=== PATIENT | female | born 1960 | race Caucasian/White ===

== ENCOUNTER 2016-04-21 14:35 | Emergency (ER) | payer OTHER ==
[2016-04-21] MEDS ORDERED: NS 0.9% 1000 ML* 1,000 ML IV ONE (17:24)
[2016-04-21 17:43] LABS: Hematocrit 42 % (35-47); Hemoglobin 13.6 g/dl (12.0-16.0); Mean Corpuscular HGB Conc 33 g/dl (31-36); Mean Corpuscular Hemoglobin 30 pg (27-31); Mean Corpuscular Volume 91 fL (80-97); Mean Platelet Volume 8 um3 (7.4-10.4); Red Blood Count 4.56 10^6/ul (4.0-5.4); Red Cell Distribution Width 14 % (10.5-15); White Blood Count 5.8 10^3/ul (3.5-10.8)
[2016-04-21 17:58] LABS: Albumin 3.9 g/dL (3.2-5.2); BUN/Creatinine Ratio 11.3 (8-20); Calcium 9.2 mg/dL (8.6-10.3); EGFR African American 109.5 (>60); EGFR Non-African American 85.2 (>60); Globulin 3.2 g/dL (2-4); Magnesium 1.9 mg/dL (1.9-2.7); Potassium 3.8 mmol/L (3.5-5.0); Total Bilirubin 0.3 mg/dL (0.2-1.0); Total Protein 7.1 g/dL (6.4-8.9)
--- NOTE | 2016-04-21 18:14 | RAD ---
HISTORY: Rapid A. fib COMPARISONS: August 21, 2015 VIEWS:1: Single frontal portable view of the chest at 5:44 PM FINDINGS: LINES AND TUBES: None. CARDIOMEDIASTINAL SILHOUETTE: The cardiomediastinal silhouette is normal for portable technique. PLEURA: The costophrenic angles are sharp. No pleural abnormalities are noted. LUNG PARENCHYMA: There is hyperinflation. ABDOMEN: The upper abdomen is clear. There is no subphrenic gas. BONES AND SOFT TISSUES: No bone or soft tissue abnormalities are noted. IMPRESSION: HYPERINFLATION. NO ACTIVE CARDIOPULMONARY DISEASE.
[2016-04-21 18:29] LABS: TSH (Thyroid Stimulating Horm) 2.11 mcIU/mL (0.34-5.60)
--- NOTE | 2016-04-21 18:43 | ED ---
Margaux Pinon Janilya, scribed for Javed Patterson MD on 04/21/16 at 1706 . Complex/Multi-Sys Presentation - HPI Summary HPI Summary: A 55 y/o female came in to [facility] presenting w/ a gradual onset of constant fatigue and dizziness for the past couple days. She states feeling "woozy" and unsteady which feels like hyperventilating. She also reports weakness in legs and palpitations. When she stands up, her condition is worse. In addition, pt normally has very low blood pressure, but this morning her BP was unusually high 138/94. Pt has been eating and drinking normally. Pt denies CP, SOB, OLIVERA. PMHx afib; flu couple weeks ago. - History Of Current Complaint Chief Complaint: EDGeneral Hx Obtained From: Patient Onset/Duration: Gradual Onset, Lasting Days, Still Present Timing: Constant Severity Currently: Moderate Severity Initially: Moderate Aggravating Factor(s): standing up Alleviating Factor(s): nothing Associated Signs And Symptoms: Positive: Dizziness, Palpitations. Negative: Headache, SOB, Chest Pain Related History: Recent Illness - flu couple weeks ago - Allergies/Home Medications Allergies/Adverse Reactions: Allergies Allergy/AdvReac Type Severity Reaction Status Date / Time Latex Allergy Rash Verified 02/29/16 13:39 PMH/Surg Hx/FS Hx/Imm Hx Previously Healthy: Yes Cardiovascular History: Reports: Hx Atrial Fibrillation Respiratory History: Reports: Hx Asthma, Other Respiratory Problems/Disorders - ILL FOR 1 1/2 WEEKS COUGH,SOB,WHEEZING PER PT Musculoskeletal History: Denies: Hx Scoliosis Neurological History: Denies: Hx Headaches, Other Neuro Impairments/Disorders - Cancer History Cancer Type, Location and Year: BASAL CELL SKIN CANCER ON BACK NO TREATMENT Infectious Disease History: No Infectious Disease History: Denies: Traveled Outside the [place] in Last 30 Days - Family History Known Family History: Positive: Cardiac Disease, Hypertension, Diabetes - Social History Alcohol Use: Weekly Alcohol Amount: 2-3 Hx Substance Use: No Substance Use Type: Reports: None Hx Tobacco Use: No Smoking Status (MU): Former Smoker Type: Cigarettes Review of Systems Positive: Fatigue Positive: Palpitations, Other - abnormally to pt high blood pressure. Negative : Chest Pain Negative: Shortness Of Breath Neurological: Other - dizziness Positive: Weakness - in legs. Negative: Headache All Other Systems Reviewed And Are Negative: Yes Physical Exam Triage Information Reviewed: Yes Vital Signs On Initial Exam: Initial Vitals Temp Pulse Resp BP Pulse Ox 98.1 F 72 19 116/91 100 04/21/16 14:49 04/21/16 14:49 04/21/16 14:49 04/21/16 14:49 04/21/16 14:49 Vital Signs Reviewed: Yes Appearance: Positive: Well-Appearing, No Pain Distress Skin: Positive: Warm, Skin Color Reflects Adequate Perfusion, Dry Head/Face: Positive: Normal Head/Face Inspection Eyes: Positive: EOMI, SHAHRZAD ENT: Positive: Normal ENT inspection Neck: Positive: Supple, Nontender Cardiovascular: Positive: RRR Abdomen Description: Positive: Nontender, Soft Bowel Sounds: Positive: Present Musculoskeletal: Positive: Normal, Strength/ROM Intact Neurological: Positive: Normal, Sensory/Motor Intact, Alert, Oriented to Person Place, Time Psychiatric: Positive: Anxious - Brady Coma Scale Coma Scale Total: 15 Diagnostics - Vital Signs Vital Signs Temp Pulse Resp BP Pulse Ox 04/21/16 15:51 98.4 F 77 16 121/88 99 04/21/16 14:49 98.1 F 72 19 116/91 100 - Laboratory Lab Results: Lab Results 04/21/16 04/21/16 04/21/16 Range/Units 17:32 17:32 17:32 WBC 5.8 (3.5-10.8) 10^3/ul RBC 4.56 (4.0-5.4) 10^6/ul Hgb 13.6 (12.0-16.0) g/dl Hct 42 (35-47) % MCV 91 (80-97) fL MCH 30 (27-31) pg MCHC 33 (31-36) g/dl RDW 14 (10.5-15) % Plt Count 231 (150-450) 10^3/ul MPV 8 (7.4-10.4) um3 Neut % (Auto) 50.2 (38-83) % Lymph % (Auto) 32.7 (25-47) % [place] % (Auto) 11.5 H (1-9) % Eos % (Auto) 4.8 (0-6) % Baso % (Auto) 0.8 (0-2) % Absolute Neuts (auto) 2.9 (1.5-7.7) 10^3/ul Absolute Lymphs (auto) 1.9 (1.0-4.8) 10^3/ul Absolute Monos (auto) 0.7 (0-0.8) 10^3/ul Absolute Eos (auto) 0.3 (0-0.6) 10^3/ul Absolute Basos (auto) 0 (0-0.2) 10^3/ul Absolute Nucleated RBC 0.02 10^3/ul Nucleated RBC % 0.3 INR (Anticoag Therapy) 0.95 (0.89-1.11) APTT 33.2 (26.0-36.3) seconds D-Dimer, Quantitative < 200 (Less Than 230) ng/mL Sodium 136 (133-145) mmol/L Potassium 3.8 (3.5-5.0) mmol/L Chloride 100 L (101-111) mmol/L Carbon Dioxide 30 (22-32) mmol/L Anion Gap 6 (2-11) mmol/L BUN 8 (6-24) mg/dL Creatinine 0.71 (0.51-0.95) mg/dL Est GFR ( Amer) 109.5 (>60) Est GFR (Non-Af Amer) 85.2 (>60) BUN/Creatinine Ratio 11.3 (8-20) Glucose 87 (70-100) mg/dL Calcium 9.2 (8.6-10.3) mg/dL Magnesium 1.9 (1.9-2.7) mg/dL Total Bilirubin 0.30 (0.2-1.0) mg/dL AST 21 (13-39) U/L ALT 15 (7-52) U/L Alkaline Phosphatase 64 (34-104) U/L Troponin I 0.00 (<0.04) ng/mL Total Protein 7.1 (6.4-8.9) g/dL Albumin 3.9 (3.2-5.2) g/dL Globulin 3.2 (2-4) g/dL Albumin/Globulin Ratio 1.2 (1-3) TSH 2.11 (0.34-5.60) mcIU/mL Result Diagrams: 04/21/16 17:32 04/21/16 17:32 Lab Statement: Any lab studies that have been ordered have been reviewed, and results considered in the medical decision making process. - Radiology CXR Xray Interpretation: No Acute Changes - IMPRESSION: HYPERINFLATION. NO ACTIVE CARDIOPULMONARY DISEASE. Radiology Interpretation Completed By: Radiologist - EKG 1455 Cardiac Rate: NL EKG Rhythm: Sinus Rhythm Ectopy: None EKG Interpretation: Borderline T wave abnormalities Complex Multi-Symp Course/Dx Assessment/Plan: WELL IN ED. DISCUSSED RESULTS WITH PATIENT. DISCHARGE HOME STABLE. - Diagnoses Provider Diagnoses: Lightheadedness Discharge - Discharge Plan Condition: Stable Disposition: HOME Patient Education Materials: Lightheadedness (ED) Referrals: Marquis Nash MD [Primary Care Provider] - Additional Instructions: FOLLOW UP WITH YOUR DOCTOR. RETURN TO THE EMERGENCY DEPARTMENT FOR ANY WORSENING OF YOUR CONDITION; CHEST PAIN, SHORTNESS OF BREATH, YOU FEEL ILL, YOU FEEL LIKE YOU ARE GOING TO PASS OUT OR QUESTIONS OR CONCERNS. The documentation as recorded by the Margaux pablo Janilya accurately reflects the service I personally performed and the decisions made by me, Javed Patterson MD.
[2016-04-21 19:05] VITALS: BP 114/65
== END 2016-04-21 19:04 | disposition home or self-care (01) ==
LOC: ED 14:35
DX: R42 Dizziness and giddiness (principal); Z87.891 Personal history of nicotine dependence; Z85.828 Personal history of other malignant neoplasm of skin; I48.91 Unspecified atrial fibrillation; J45.909 Unspecified asthma, uncomplicated
CPT/HCPCS: 36415; 71010; 80053; 83735; 84443; 84484; 85025; 85379; 85610; 85730; 93005; 96360; 99282

== ENCOUNTER 2018-04-25 08:22 | Inpatient (IN) | payer OTHER ==
[2018-04-25] MEDS ORDERED: NS 0.9% 1000 ML** 1,000 ML IV ONE (08:41)
[2018-04-25] MEDS ORDERED: Diltiazem IV* 5 MG/ML 5 ML VIAL (for loading dose/IV Push) (25 MG) ONE (08:41)
[2018-04-25] MEDS ORDERED: Diltiazem IV* 5 MG/ML 5 ML VIAL (for loading dose/IV Push) (25 MG) IV PUSH ONE (08:41)
--- NOTE | 2018-04-25 08:49 | ED ---
Palpitations / Dysrhythmia - HPI Summary HPI Summary: This patient is a 57 year old F presenting to [facility] with a chief complaint of dull mid-sternal chest pain with sudden palpitations beginning this morning with mild SOB. She describes the palpitations as a-fib and has a history of A- fib. SOB is currently improved. CP is 2/10 upon triage. Patient reports dizziness and recent cold. Patient denies current headache. Patient states she is not taking Coumadin as prescribed and she is not on any anticoagulants because she does not like how they make her feel. She is not sure what anticoagulants have been tried. She saw Dr. Ford last week and is supposed to have a cardiac ECHO ordered by Dr. Ford in 6 days. She reports occasionally taking gabapentin for restless legs, but no other medications. - History of Current Complaint Chief Complaint: EDChestPainROMI Hx Obtained From: Patient Onset/Duration: Sudden Onset, Lasting Hours Timing: Constant Severity Initially: Severe Severity Currently: Severe Character: Fast, Irregular Aggravating: Caffeine - was making a pot of coffee at onset, Medication - cold medication? Alleviating: Nothing Associated Signs & Symptoms: Dizzy, Chest Pain, Shortness of Breath Related History: Similar Episode/Dx as - A-fib - Allergy/Home Medications Allergies/Adverse Reactions: Allergies Allergy/AdvReac Type Severity Reaction Status Date / Time latex Allergy Mild Rash Verified 04/25/18 08:44 Home Medications: Home Medications Gabapentin CAP(*) [Neurontin 100 mg CAP(*)] 100 mg PO SEE INSTRUCTIONS PRN 04/25 [History Confirmed 04/25/18] PMH/Surg Hx/FS Hx/Imm Hx Previously Healthy: No Cardiovascular History: Reports: Hx Atrial Fibrillation Respiratory History: Reports: Hx Asthma, Other Respiratory Problems/Disorders - ILL FOR 1 1/2 WEEKS COUGH,SOB,WHEEZING PER PT Musculoskeletal History: Denies: Hx Scoliosis Neurological History: Denies: Hx Headaches, Other Neuro Impairments/Disorders - Cancer History Cancer Type, Location and Year: BASAL CELL SKIN CANCER ON BACK NO TREATMENT - Surgical History Surgery Procedure, Year, and Place: none Infectious Disease History: No Infectious Disease History: Denies: Traveled Outside the [place] in Last 30 Days - Family History Known Family History: Positive: Cardiac Disease - mother at age 80, Hypertension , Diabetes - Social History Alcohol Use: Weekly Alcohol Amount: 2-3 Hx Substance Use: No Substance Use Type: Reports: None Hx Tobacco Use: No Smoking Status (MU): Former Smoker Type: Cigarettes Review of Systems Positive: Other - dizzy Positive: Palpitations, Chest Pain Positive: Shortness Of Breath Gastrointestinal: Negative Positive: no symptoms reported Musculoskeletal: Negative Skin: Negative Negative: Headache Psychological: Normal All Other Systems Reviewed And Are Negative: Yes Physical Exam - Summary Physical Exam Summary: Appearance: Ill-appearing, no pain distress, well-nourished Skin: Warm, color reflects adequate perfusion, dry Head: Normal Head/Face inspection, atraumatic Eyes: Conjunctiva clear ENT: Normal inspection Neck: Supple, no nodes, no JVD Respiratory: Lungs clear, normal breath sounds, no respiratory distress Cardio: tachycardic, irregular rhythm, No murmur, pulses normal, brisk capillary refill Abdomen: Soft, nontender Bowel sounds: Present Musculoskeletal: Strength Intact/ROM intact, no calf tenderness, no edema. Psychological: Normal Neuro: Alert, muscle tone normal, no focal deficit Triage Information Reviewed: Yes Vital Signs On Initial Exam: Initial Vitals Temp Pulse Resp BP Pulse Ox 97.3 F 133 20 129/98 100 04/25/18 08:23 04/25/18 08:23 04/25/18 08:23 04/25/18 08:23 04/25/18 08:23 Vital Signs Reviewed: Yes Diagnostics - Vital Signs Vital Signs Temp Pulse Resp BP Pulse Ox 04/25/18 08:23 97.3 F 133 20 129/98 100 - Laboratory Result Diagrams: 04/26/18 05:15 04/26/18 05:15 Lab Statement: Any lab studies that have been ordered have been reviewed, and results considered in the medical decision making process. - Radiology CXR Radiology Interpretation Completed By: Radiologist Summary of Radiographic Findings: NO ACTIVE CARDIOPULMONARY DISEASE. - EKG 0831 Cardiac Rate: Tachycardia - 176 BPM EKG Rhythm: Atrial Fibrillation ST Segment: Non-Specific Ectopy: None EKG Comparison: Other - c/w 04/21/16 pt is now in rapid afib Summary of EKG Findings: nml IV CT, nml QTc, and nml axis. No acute changes. 1118 Cardiac Rate: Tachycardia - 131 BPM EKG Rhythm: Atrial Fibrillation ST Segment: Non-Specific Ectopy: PVCs EKG Comparison: Other - rated decreased from earlier today Summary of EKG Findings: nml IV CT, nml QTc, and nml axis. No acute changes. Re-Evaluation - Re-Evaluation First Re-Evaluation Time: 10:20 Change: Improved - HR at 154 BPM. BP 93/66. Patient denies CP. Cardizem drip increased from 5mg to 7.5mg. Second Eval Re-Evaluation Time: 11:00 Change: Unchanged Comment: HR remains elevated. Fluids infusing. Cardizem drip increased to 10mg/ hr Course/Dx - Course Course Of Treatment: 57 year old F presenting to [facility] with a chief complaint of dull mid-sternal chest pain with sudden palpitations beginning this morning with mild SOB. She describes the palpitations as a-fib and has a history of A -fib. SOB is currently improved. Patient reports dizziness and recent cold. Patient denies current headache. Patient states she is not taking Coumadin as prescribed. Pulse was 197 during examination with a BP of 129/96. After first 10mg dose of cardizem pulse improved to 120-150BPM with a BP of 98/60. Patient was placed on cardizem drip at 5mg, which was later increased to 7.5mg. Patient additinoally given 1,000mls IVF. Drip was ultimately increased to 10mg/hr and second liter of NS IV infused. See Janie's nurses notes which detail heart rates , fluids and Cardizem drip rates. Intial EKG reveals A-fib at 176 BPM, nml IV CT, nml QTc, and nml axis. No acute changes. Second EKG reveals a-fib at 131BPM , nml IV CT, nml QTc, and nml axis. No acute changes. An EKG in 2017 showed pt in sinus rhytm. CXR reveals, " NO ACTIVE CARDIOPULMONARY DISEASE", as per radiologist. Bloodwork reveals BUN/Creatinine ratio of 24.4 and B-natriuretic 191. Toxicology is negative. Flu swabs are negative. Dr. Lennon accepts for admission at 11:50. Results discussed with patient. Patient agress to admission. - Diagnoses Differential Diagnosis/HQI/PQRI: Positive: Cardiomyopathy, Congestive Heart Failure, Coronary Artery Disease, Medication Induced, Pulmonary Embolism Provider Diagnoses: Atrial fibrillation with RVR - Physician Notifications Discussed Care Of Patient With: Lisa Lennon - hospitalist Time Discussed With Above Provider: 11:50 Instructed by Provider To: Admit As Inpatient - Critical Care Time Critical Care Time: 30-74 min - 30 mins Discharge - Sign-Out/Discharge Documenting (check all that apply): Patient Departure - admit All imaging exams completed and their final reports reviewed: Yes - Discharge Plan Condition: Stable Disposition: ADMITTED TO [facility] - Billing Disposition and Condition Condition: STABLE Disposition: Admitted to [facility] - Attestation Statements Document Initiated by Scribe: Yes Documenting Scribe: Angelica Smith Provider For Whom Narayanibe is Documenting (Include Credential): Mae Winkler MD Scribe Attestation: Angelica Pinon , scribed for Mae Winkler MD on 04/27/18 at 0010. Scribe Documentation Reviewed: Yes Provider Attestation: The documentation as recorded by the Angelica pablo accurately reflects the service I personally performed and the decisions made by Mae denise MD Status of Scribe Document: Viewed
[2018-04-25 08:51] LABS: ABS Basophils 0.1 10^3/ul (0-0.2); ABS Eosinophils 0.4 10^3/ul (0-0.6); ABS Monocytes 0.5 10^3/ul (0-0.8); ABS Nucleated RBC 0 10^3/ul; Eosinophil % 5.3 %; Hematocrit 41 % (35-47); Hemoglobin 13.7 g/dl (12.0-16.0); Lymphocyte % 25.1 %; Mean Corpuscular HGB Conc 33 g/dl (31-36); Mean Corpuscular Hemoglobin 31 pg (27-31); Mean Corpuscular Volume 92 fL (80-97); Mean Platelet Volume 8.4 fL (7.4-10.4); Nucleated Red Blood Cells % 0.1; Platelet Count 327 10^3/ul (150-450); Red Blood Count 4.48 10^6/ul (4.00-5.40); Red Cell Distribution Width 14 % (10.5-15); White Blood Count 7.9 10^3/ul (3.5-10.8)
[2018-04-25] MEDS: Diltiazem IV VIAL* 125 MG in NS 0.9% 100 ML* 100 ML IVPB ONE ×3 (09:03→10:25)
[2018-04-25 09:10] LABS: Albumin 3.9 g/dL (3.2-5.2); Albumin/Globulin Ratio 1.2 (1-3); BUN/Creatinine Ratio 24.4 (8-20); Calcium 9.7 mg/dL (8.6-10.3); EGFR African American 91.8 (>60); EGFR Non-African American 75.9 (>60); Globulin 3.3 g/dL (2-4); Magnesium 1.9 mg/dL (1.9-2.7); Potassium 4.1 mmol/L (3.5-5.0); Total Bilirubin 0.3 mg/dL (0.2-1.0); Total Protein 7.2 g/dL (6.4-8.9)
[2018-04-25 09:14] LABS: CKMB ng/mL 1.1 ng/mL (0.6-6.3)
--- OUTSIDE RECORDS SUMMARY | 2018-04-25 09:15 | XMS REPORT | Continuity of Care Document ---
:1960 External Reference #:[id number] Author Name WeslyFanny Care Team Providers Name Role Phone Jaleesa León M.D. Primary Care Physician Unavailable Payers Date Identification Numbers Payment Provider Subscriber Expires: 2015 Policy Number: [id number] Medicaid Jayleen Gonsalves [employer] Name: 1 1 [address] PayID: [id number] [place] [address] Effective: 2018 Policy Number: [id number] [place] Jayleen Gonsalves Group Name: [id number] PayID: [id number] [place] [address] Expires: 2018 Policy Number: [id number] Medicaid Jayleen Gonsalves Group Name: [address] PayID: [id number] [place] [address] Advance Directives Description No Information Available Problems Date Description Provider Status Onset: 05/06/2008 Female climacteric state Adina Smith M.D.,FACP Onset: 05/06/2008 Insomnia Adina Smith M.D.,FACP Onset: 11/29/2009 Restless legs Adina Smith M.D.,FACP Onset: 10/07/2012 Microscopic hematuria Adina Smith M.D.,FACP Onset: 03/30/2013 Extrinsic asthma without status Adina Smith asthmaticus Jovan,FACP Onset: 08/07/2015 Paroxysmal atrial fibrillation Lyn Ford M.D. Active Onset: 11/09/2015 Allergic contact dermatitis of Lyn Ford M.D. Active eyelid Onset: 11/09/2015 Allergic contact dermatitis due Lyn Ford M.D. Active to adhesive Onset: 11/20/2015 Mixed hyperlipidemia Adina Smith M.D.,FACP Note: high HDL Onset: 02/16/2016 Localized superficial swelling of skin Rashad De León MD Inactive Inactive: 08/23/2016 Onset: 07/14/2015 Rapid atrial fibrillation Marquis Nash M.D.,FACP Resolved Resolved: 09/27/2015 Family History Date Family Member(s) Observation Comments General Diabetes General Heart Disease General Cancer Father due to Alcohol Related () Mother Diabetes, Non Insulin Dependent : (age 74 Years) Mother due to Heart Disease CHF? 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 Exercise Type/Frequency Exercises rarely Allergies, Adverse Reactions, Alerts Date Description Reaction Status Severity Comments 10/02/2012 Environmental Allergies Active 10/25/2015 Hydrocodone Active 02/16/2016 Latex Active 03/28/2008 NKDA Inactive Medications Medication Date Status Form Strength Qnty SIG Indications Ordering Provider Tramadol 02/28/ Active Tablets 37.5-325m 45tab 1 tab by Jaleesa /A 2015 g s mouth León, cetaminophen every 4-6 MD hours as needed pain Ibuprofen 10/24/ Active Tablets 600mg 90tab three B02.8 Maqruis 2016 s times a Lelia Nash, kasandra as Jovan,FACP needed Gabapentin 10/24/ Active Capsules 100mg 120ca 2 tabs B02.8 2015 ps twice a León, day as MD needed Ventolin HFA 03/30/ Active Aerosol 108(90Bas 18gm 2 puffs by 2013 e) mouth four León, mcg/Act times a MD day as needed Magnesium Oxide 09/06/ Active Tablets 400mg 90tab 1 by mouth G47.62 2009 s every day MD Romelia Loratadine / Active Tablets 10mg 30tab 1 by mouth J45.998 s every day Romelia, as needed Tizanidine HCL 08/06/ Hx Tablets 4mg 30tab 1 three 2017 - s times a León, 04/03/ day as 2019 needed Doxycycline 11/22/ Hx Tablets 100mg 20tab 1 tablet L01.00 James Hyclate 2016 - s po twice a [place], 12/02/ day x10 RN CORRECTIONAL 2016 days Bactroban 11/19/ Hx Cream 2% 15gm apply L01.00 Marquis 2016 - topically Lelia Nash, 08/06/ two times M.D.,FACP 2018 daily as needed Prednisone 11/08/ Hx Tablets 20mg 6tabs 2 by mouth L23.3 Ghanshyam 2016 - once daily Avelina, RN CORRECTIONAL 11/11/ x 3 days 2016 Hydrocodone-Jarrell 10/24/ Hx Tablets 5-325mg 30tab 1 by mouth L01.00 Jailyn Schulz taminophen 2016 - s every 4-6 D. Charity, 11/19/ hours prn. M.D.,FACP 2016 Valacyclovir 10/24/ Hx Tablets 1gm 21tab by mouth B02.8 Marquis HCL 2016 - s every 8 D. Charity, 10/31/ hours for M.D.,FACP 2016 1 week Doxycycline 08/27/ Hx Tablets 100mg 2tabs 2 tabs by Marquis Hyclate 2016 - mouth once Lelia Nash, 09/26/ M.D.,FACP 2016 Alvesco 08/27/ Hx Aerosol 80mcg/Act 18.3g 1 puff J45.998 Marquis 2016 - m inhaled Lelia Nash, 04/03/ twice a M.D.,FACP 2019 day Aspirin 08/23/ Hx Tablets 81mg 1 by mouth Marquis 2016 - every day Lelia Nash, 04/03/ M.D.,FACP 2019 Asmanex HFA 08/23/ Hx Aerosol 100mcg/Ac 39gm 2 puff J45.998 Marquis 2015 - t twice a D. Charity, 08/27/ day M.D.,FACP 2016 Propafenone HCL 08/23/ Hx Tablets 150mg 60tab 1 tab by I48.0 Marquis 2015 - s mouth D. Charity, 01/23/ twice a M.D.,FACP 2015 (not taking) Potassium 08/06/ Hx Capsules ER 10Meq 90cap 1 by mouth I48.0 Lyn Chloride ER 2015 - s every day Dorado, 04/03/ M.D. 2018 Ibuprofen 04/09/ Hx Tablets 800mg 100ta take 1 724.2 Criss 2013 - bs tablet 3-4 Eugenio, 08/23/ times a N.P. 2015.(pt not taking) Carisoprodol 04/09/ Hx Tablets 250mg 10tab 1 tab po 724.2 Criss 2014 - s qhs( pt Eugenio, 08/23/ not N.P. 2015 taking) Tramadol HCL 04/09/ Hx Tablets 50mg 20tab 1-2 tabs 724.2 Criss 2014 - s po qhs Eugenio, 08/23/ prn(Pt not N.P. 2015 taking) Triamcinolone 11/05/ Hx Cream 0.5% 15gm every day 694.5 Marquis Acetonide 2012 - as needed D. Charity, 08/06/ M.D.,FACP 2018 Alvesco 10/07/ Hx Aerosol 80mcg/Act 60uni 2 puff 493.92 Marquis 2013 - ts inhaled D. [place], 08/23/ bid(morales Aldana,FACP 2015 t not using) Nystatin/Triamc 10/07/ Hx Cream 454313-2. 60g apply 696.1 Marquis inolone 2012 - 1Unit/GM- topically D. Charity, 03/30/ % bid as M.D.,FACP 2014 needed Prednisone 10/02/ Hx Tablets 10mg 50tab 6 tabs qd 694.5 Marquis 2012 - s for 4 D. Charity, 11/05/ days, then M.D.,FACP 2013 reduce by 1 tab every 2 days until finished Levofloxacin 10/02/ Hx Tablets 750mg 7tabs po qd 493.92 Marquis 2012 Thomas Nash, 10/15/ M.D.,FACP 2013 Desloratadine 10/02/ Hx Tablets 5mg 90tab take 1 493.92 Marquis 2012 Thomas s tablet Lelia Nash, 08/23/ daily if M.D.,FACP 2016 needed(pat ient not taking) Amitriptyline 09/02/ Hx Tablets 25mg 45tab 1-2 po qhs Ayden Andrade HCL 2011 - Jeison, M.D. 2012 Hydrocodone/Jarrell 07/18/ Hx Tablets 5-325mg 90tab 1-2 po qid Ayden Andrade taminophen 2011 - prn pain Jeison, .D. 2012 Prednisone 12/13/ Hx Tablets 5mg 49tab 4 tablets Marquis 2009 - s po qday x1 D. Charity, 10/02/ wk then 2 M.D.,FACP 2012 tablets po qday x1 wk then 1 tablet po qday x1wk Ambien 11/29/ Hx Tablets 10mg 30tab 1/2-1 po 780.52 Marquis 2009 - s qhs prn Lelia Nash, 08/23/ insomnia(p M.D.,FACP 2016 atient not taking) Omeprazole 09/13/ Hx Capsules DR 20mg 14cap 1 po qd Marquis 2009 Thomas miller for 2 D. Charity, 11/29/ weeks M.DEspinoza,FACP 2009 Singulair 09/06/ Hx Tablets 10mg 30tab 1 po qd 493.90 Marquis 2009 - s Lelia Nash, 10/02/ M.D.,FACP 2012 Triamcinolone 09/06/ Hx Cream 0.1% 60g apply qd 692.6 Marquis Acetonide 2009 - prn Lelia Nash, 11/29/ M.D.,FACP 2009 Claritin 08/18/ Hx Capsules 10mg 30cap 1 tablet Marquis 2009 - s po daily DEspinoza Nash, 09/06/ prn M.Lelia,FACP 2009 Fluticasone 07/06/ Hx Suspension 50mcg/Act 1mon 1 spray 477.0 Marquis Propionate 2008 - each D. Charity, 09/06/ nostril in M.D.,FACP 2010 am Effexor XR 07/06/ Hx Caps ER 24HR 37.5mg 30cap 1 po qd 296.30 Marquis 2008 - s DEspinoza Nash, 09/06/ M.D.,FACP 2010 Ambien 05/06/ Hx Tablets 5mg 20tab 1 po qhs 780.52 Marquis 2008 - s prn Lelia Nash, 11/29/ insomnia M.D.,FACP 2010 Premarin 05/06/ Hx Cream 0.625mg/G 45.2g 2 gram pv 627.2 Marquis 2008 m qd prn Lelia Nash, 09/06/ M.Kimberly.,FACP 2009 disp 3 tubes None / Hx Unknown 0000 - 2008 Loratadine / Hx Tablets 10mg 30tab 1 po qd Unknown 0000 - s prn 2012 Ventolin HFA / Hx Aerosol 108(90Bas 1unit 2 puffs po Unknown 0000 - e) mcg/ac s qid prn 2013 Prednisolone // Hx Powder Unknown - 2009 Pulmicort / Hx Aerosol 180mcg/Ac 120un 2 puffs Marquis Flexhaler 0000 - t its twice D. Charity, 10/02/ daily M.D.,FACP 2012 Temazepam / Hx Capsules 30mg 15cap po qhs Marquis - s Lelia Nash, 10/02/ M.D.,FACP 2012 Zyrtec Allergy 00/ Hx Capsules 10mg 30cap 1 po qd Unknown 0000 - s 2013 Selenium / Hx Lotion 2.5% 1Bott use as Unknown Sulfide 0000 - le directed 2015 Fluocinolone / Hx Oil 0.01% 45uni topical qd Unknown Acetonide Scalp 0000 - ts prn 2015 Metoprolol / Hx Tablets ER 25mg 1 by mouth I48.0 Unknown Succinate ER 0000 - 24HR every day 2015 Aspirin Ec 00/00/ Hx Tablets DR 325mg 1 by mouth Unknown 0000 - daily( 08/23/ patient 2016 has not been taking) Medications Administered in Office Medication Date Status Form Strength Qnty SIG Indications Ordering Provider Technetium TC Administered Injection Kaleb Alston 99M 016 DO Torin Tetrofosmin, FACC Per Unit Dose Up To 40 Millicuries Immunizations CPT Code Status Date Vaccine Lot # [id number] Given 10/07/2012 Pneumonia Vaccine [id number] Given 11/24/2009 Pneumonia Vaccine Vital Signs Date Vital Result Comment 04/21/2018 8:57am Height 68 inches 5'8" Weight 136.00 lb without shoes Heart Rate 72 /min BP Systolic Sitting 108 mmHg Rue reg cuff " buzzing in head " BP Diastolic Sitting 70 mmHg Rue reg cuff " buzzing in head " BP Systolic Standing 102 mmHg Rue reg cuff " lighthead when first standing" BP Diastolic Standing 68 mmHg Rue reg cuff " lighthead when first standing" BP Systolic Lying Down 110 mmHg Rue reg cuff BP Diastolic Lying Down 72 mmHg Rue reg cuff Respiratory Rate 18 /min BMI (Body Mass Index) 20.7 kg/m2 04/20/2018 3:08pm Height 68 inches 5'8" Weight 135.00 lb Heart Rate 73 /min BP Systolic Sitting 101 mmHg BP Diastolic Sitting 68 mmHg Body Temperature 98.3 F O2 % BldC Oximetry 97 % BMI (Body Mass Index) 20.5 kg/m2 04/17/2018 9:17am Height 68 inches 5'8" Weight 138.12 lb Heart Rate 66 /min BP Systolic Sitting 122 mmHg BP Diastolic Sitting 72 mmHg Respiratory Rate 14 /min BMI (Body Mass Index) 21.0 kg/m2 04/03/2018 10:50am Height 68 inches 5'8" Weight 138.00 lb Heart Rate 67 /min BP Systolic 104 mmHg BP Diastolic 67 mmHg Body Temperature 98.0 F O2 % BldC Oximetry 97 % BMI (Body Mass Index) 21.0 kg/m2 04/03/2018 10:38am Height 68 inches 5'8" 03/06/2018 9:38am Height 68 inches 5'8" Weight 142.12 lb Heart Rate 65 /min BP Systolic 120 mmHg BP Diastolic 64 mmHg Body Temperature 97.7 F O2 % BldC Oximetry 98 % BMI (Body Mass Index) 21.6 kg/m2 08/06/2017 1:09pm Weight 138.00 lb Heart Rate 68 /min BP Systolic Sitting 114 mmHg BP Diastolic Sitting 64 mmHg Body Temperature 97.6 F O2 % BldC Oximetry 94 % 08/23/2016 10:39am Weight 141.00 lb Heart Rate 64 /min BP Systolic Sitting 100 mmHg BP Diastolic Sitting 66 mmHg Body Temperature 97.6 F O2 % BldC Oximetry 98 % 05/02/2016 9:06am Height 68 inches 5'8" Weight 138.38 lb Heart Rate 76 /min BP Systolic Sitting 98 mmHg BP Diastolic Sitting 70 mmHg Body Temperature 96.6 F O2 % BldC Oximetry 98 % BMI (Body Mass Index) 21.0 kg/m2 04/12/2016 11:48am Height 68 inches 5'8" Weight 142.00 lb Respiratory Rate 16 /min Pain Level 3 BMI (Body Mass Index) 21.6 kg/m2 03/12/2016 2:28pm Height 68 inches 5'8" Weight 150.00 lb Body Temperature 98.0 F Pain Level 4 BMI (Body Mass Index) 22.8 kg/m2 02/16/2016 1:02pm Height 68 inches 5'8" Weight 150.00 lb BP Systolic 108 mmHg BP Diastolic 62 mmHg BMI (Body Mass Index) 22.8 kg/m2 01/24/2016 11:13am Weight 148.00 lb Heart Rate 78 /min BP Systolic Sitting 112 mmHg BP Diastolic Sitting 64 mmHg Body Temperature 97.4 F O2 % BldC Oximetry 98 % 11/20/2015 8:36am Height 68.5 inches 5'8.50" Weight 140.00 lb Heart Rate 68 /min BP Systolic 108 mmHg BP Diastolic 77 mmHg Body Temperature 98.2 F O2 % BldC Oximetry 98 % BMI (Body Mass Index) 21.0 kg/m2 11/09/2015 1:40pm Height 68.5 inches 5'8.50" Weight 142.00 lb Heart Rate 68 /min BP Systolic Sitting 98 mmHg LA reg cuff BP Diastolic Sitting 72 mmHg LA reg cuff BP Systolic Standing 98 mmHg LA BP Diastolic Standing 72 mmHg LA Respiratory Rate 16 /min BMI (Body Mass Index) 21.3 kg/m2 Ejection Fraction 55-60% 10/10/15 10/25/2015 3:43pm Weight 140.00 lb Heart Rate 63 /min BP Systolic Sitting 91 mmHg BP Diastolic Sitting 66 mmHg O2 % BldC Oximetry 97 % 10/16/2015 8:54am Height 68.5 inches 5'8.50" Weight 137.00 lb w/o shoes Heart Rate 72 /min reg BP Systolic Sitting 100 mmHg Rue, reg cuff BP Diastolic Sitting 66 mmHg Rue, reg cuff BP Systolic Standing 94 mmHg Rue BP Diastolic Standing 64 mmHg Rue Respiratory Rate 16 /min BMI (Body Mass Index) 20.5 kg/m2 Ejection Fraction 55-60% as of 10/10/15 echo 09/27/2015 2:06pm Height 68.5 inches 5'8.50" Weight 137.00 lb Heart Rate 66 /min BP Systolic Sitting 102 mmHg BP Diastolic Sitting 62 mmHg Body Temperature 97.7 F O2 % BldC Oximetry 97 % BMI (Body Mass Index) 20.5 kg/m2 08/24/2015 12:31pm Height 68.5 inches 5'8.50" Weight 136.25 lb Heart Rate 86 /min BP Systolic Sitting 86 mmHg BP Diastolic Sitting 50 mmHg Body Temperature 98.2 F O2 % BldC Oximetry 97 % BMI (Body Mass Index) 20.4 kg/m2 08/07/2015 2:02pm Height 68.5 inches 5'8.50" Weight 136.00 lb no shoes Heart Rate 68 /min BP Systolic 100 mmHg Ra reg cuff BP Diastolic 68 mmHg Ra reg cuff BP Systolic Sitting 114 mmHg LA reg cuff BP Diastolic Sitting 74 mmHg LA reg cuff BP Systolic Standing 110 mmHg LA reg cuff BP Diastolic Standing 74 mmHg LA reg cuff Respiratory Rate 15 /min BMI (Body Mass Index) 20.4 kg/m2 04/09/2013 3:42pm Height 68.5 inches 5'8.50" Weight 133.25 lb Heart Rate 84 /min BP Systolic Sitting 86 mmHg BP Diastolic Sitting 58 mmHg BMI (Body Mass Index) 20.0 kg/m2 03/30/2013 11:06am Height 68.5 inches 5'8.50" Weight 133.75 lb Heart Rate 76 /min BP Systolic Sitting 94 mmHg BP Diastolic Sitting 60 mmHg BMI (Body Mass Index) 20.0 kg/m2 11/05/2012 5:02pm Weight 135.50 lb Heart Rate 78 /min BP Systolic Sitting 110 mmHg BP Diastolic Sitting 72 mmHg O2 % BldC Oximetry 98 % 10/07/2012 2:45pm Height 68.5 inches 5'8.50" Weight 133.50 lb Heart Rate 70 /min BP Systolic Sitting 99 mmHg with auto cuff BP Diastolic Sitting 66 mmHg with auto cuff BMI (Body Mass Index) 20.0 kg/m2 10/02/2012 11:52am Weight 134.75 lb Heart Rate 73 /min BP Systolic Sitting 128 mmHg BP Diastolic Sitting 82 mmHg Body Temperature 98.3 F O2 % BldC Oximetry 96 % BMI (Body Mass Index) 3.1 kg/m2 11/29/2009 8:52am Weight 129.00 lb Heart Rate 72 /min BP Systolic Sitting 90 mmHg BP Diastolic Sitting 60 mmHg 09/06/2009 9:16am Height 69 inches 5'9" Weight 136.00 lb Heart Rate 74 /min BP Systolic Sitting 98 mmHg BP Diastolic Sitting 70 mmHg Body Temperature 98.0 F O2 % BldC Oximetry 98 % BMI (Body Mass Index) 20.1 kg/m2 07/06/2008 9:03am Height 69 inches 5'9" Weight 133.00 lb Heart Rate 80 /min BP Systolic Sitting 116 mmHg BP Diastolic Sitting 74 mmHg BMI (Body Mass Index) 19.6 kg/m2 05/06/2008 10:03am Height 69 inches 5'9" Weight 132.00 lb Heart Rate 58 /min BP Systolic Sitting 114 mmHg BP Diastolic Sitting 60 mmHg BMI (Body Mass Index) 19.5 kg/m2 03/28/2008 10:02am Height 69 inches 5'9" Weight 132.00 lb Heart Rate 64 /min BP Systolic Sitting 132 mmHg recheck 122/74 BP Diastolic Sitting 80 mmHg recheck 122/74 BMI (Body Mass Index) 19.5 kg/m2 Results Test Date Facility Test Result H/L Range Note Lipid Profile 04/03/2018 [facility] Triglycerides 80 mg/dL 1 (Trig/Chol/HDL) [address] [place] [address] [phone] Cholesterol 211 mg/dL 2 HDL Cholesterol 74.4 mg/dL 3 LDL Cholesterol 121 mg/dL 4 Laboratory test finding 04/03/2018 [facility] Glucose 83 mg/dL N 70-[address] [place] [address] [phone] TSH (Thyroid Stim Horm) 2.19 mcIU/mL N 0.34-5.60 Comp Metabolic Panel 04/03/2018 [facility] Sodium 137 mmol/L N 135-[address] [place] [address] [phone] Potassium 4.0 mmol/L N 3.5-5.0 Chloride 101 mmol/L N 101-111 Co2 Carbon Dioxide 30 mmol/L N 22-32 Anion Gap 6 mmol/L N 2-11 Blood Urea Nitrogen 20 mg/dL N 6-24 Creatinine 0.74 mg/dL N 0.51-0.95 BUN/Creatinine Ratio 27.0 High 8-20 Calcium 9.4 mg/dL N 8.6-10.3 Total Protein 6.9 g/dL N 6.4-8.9 Albumin 4.0 g/dL N 3.2-5.2 Globulin 2.9 g/dL N 2-4 Albumin/Globulin Ratio 1.4 N 1-3 Total Bilirubin 0.30 mg/dL N 0.2-1.0 Alkaline Phosphatase 78 U/L N 34-104 Alt 11 U/L N 7-52 Ast 16 U/L N 13-39 Egfr Non- 80.6 >60 Egfr 97.5 >60 5 Inr/Protime 04/21/2016 [facility] Inr 0.95 N 0.89-1.[address] [place] [address] [phone] Laboratory test 04/21/2016 [facility] Partial 33.2 seconds N 26.0-36.[address] [place] [address] PTT [phone] D Dimer Quantitative < 200 ng/mL N Less Than 230 6 CBC Auto Diff 04/21/2016 [facility] White Blood 5.8 10^3/uL N 3.5-10.[address] [place] [address] [phone] Red Blood Count 4.56 10^6/uL N 4.0-5.4 Hemoglobin 13.6 g/dL N 12.0-16.0 Hematocrit 42 % N 35-47 Mean Corpuscular Volume 91 fL N 80-97 Mean Corpuscular Hemoglobin 30 pg N 27-31 Mean Corpuscular HGB Conc 33 g/dL N 31-36 Red Cell Distribution Width 14 % N 10.5-15 Platelet Count 231 10^3/uL N 150-450 Mean Platelet Volume 8 um3 N 7.4-10.4 Abs Neutrophils 2.9 10^3/uL N 1.5-7.7 Abs Lymphocytes 1.9 10^3/uL N 1.0-4.8 Abs Monocytes 0.7 10^3/uL N 0-0.8 Abs Eosinophils 0.3 10^3/uL N 0-0.6 Abs Basophils 0 10^3/uL N 0-0.2 Abs Nucleated RBC 0.02 10^3/uL N Granulocyte % 50.2 % N 38-83 Lymphocyte % 32.7 % N 25-47 Monocyte % 11.5 % High 1-9 Eosinophil % 4.8 % N 0-6 Basophil % 0.8 % N 0-2 Nucleated Red Blood Cells % 0.3 N Comp Metabolic Panel 04/21/2016 [facility] Sodium 136 mmol/L N 133-145 [address] [place] [address] [phone] Potassium 3.8 mmol/L N 3.5-5.0 Chloride 100 mmol/L Low 101-111 Co2 Carbon Dioxide 30 mmol/L N 22-32 Anion Gap 6 mmol/L N 2-11 Glucose 87 mg/dL N 70-100 Blood Urea Nitrogen 8 mg/dL N 6-24 Creatinine 0.71 mg/dL N 0.51-0.95 BUN/Creatinine Ratio 11.3 N 8-20 Calcium 9.2 mg/dL N 8.6-10.3 Total Protein 7.1 g/dL N 6.4-8.9 Albumin 3.9 g/dL N 3.2-5.2 Globulin 3.2 g/dL N 2-4 Albumin/Globulin Ratio 1.2 N 1-3 Total Bilirubin 0.30 mg/dL N 0.2-1.0 Alkaline Phosphatase 64 U/L N 34-104 Alt 15 U/L N 7-52 Ast 21 U/L N 13-39 Egfr Non- 85.2 N >60 Egfr 109.5 N >60 7 Laboratory test 04/21/2016 [facility] Magnesium 1.9 mg/dL N 1.9-2.[address] [place] [address] [phone] Troponin-I (TnI) 0.00 ng/mL N <0.04 8 TSH (Thyroid Stim Horm) 2.11 mcIU/mL N 0.34-5.60 Laboratory test 02/29/2016 [facility] Surgical Pathology SEE RESULT 9, [address] [place] [address] [phone] Laboratory test 02/05/2016 [facility] Cortisol 25.10 ?g/dL N 11, [address] [place] [address] [phone] Laboratory test 02/05/2016 [facility] Cortisol 21.95 ?g/dL N 13, [address] [place] [address] [phone] Laboratory test 02/05/2016 [facility] Cortisol 23.78 ?g/dL N 15, 16 finding [address] [place] [address] [phone] Laboratory test 02/05/2016 [facility] Cortisol 13.24 ?g/dL N 17, 18 finding [address] [place] [address] [phone] Lipid Profile 11/16/2015 [facility] Triglycerides 86 mg/dL N 19 (Trig/Chol/HDL) [address] [place] [address] [phone] Cholesterol 232 mg/dL N 20 HDL Cholesterol 72.4 mg/dL N 21 LDL Cholesterol 142 mg/dL N 22 CBC Auto Diff 07/12/2015 [facility] White Blood 8.1 10^3/uL N 3.5-10.[address] [place] [address] [phone] Red Blood Count 4.14 10^6/uL N 4.0-5.4 Hemoglobin 12.9 g/dL N 12.0-16.0 Hematocrit 38 % N 35-47 Mean Corpuscular Volume 93 fL N 80-97 Mean Corpuscular Hemoglobin 31 pg N 27-31 Mean Corpuscular HGB Conc 34 g/dL N 31-36 Red Cell Distribution Width 14 % N 10.5-15 Platelet Count 273 10^3/uL N 150-450 Mean Platelet Volume 8 um3 N 7.4-10.4 Abs Neutrophils 4.3 10^3/uL N 1.5-7.7 Abs Lymphocytes 2.4 10^3/uL N 1.0-4.8 Abs Monocytes 0.8 10^3/uL N 0-0.8 Abs Eosinophils 0.5 10^3/uL N 0-0.6 Abs Basophils 0.1 10^3/uL N 0-0.2 Abs Nucleated RBC 0.01 10^3/uL N Granulocyte % 52.8 % N 38-83 Lymphocyte % 30.0 % N 25-47 Monocyte % 10.3 % High 1-9 Eosinophil % 6.2 % High 0-6 Basophil % 0.7 % N 0-2 Nucleated Red Blood Cells % 0.1 N Inr/Protime 07/12/2015 [facility] Inr 0.97 N 0.89-1.11 [address] [place] [address] [phone] Comp Metabolic Panel 07/12/2015 [facility] Sodium 135 mmol/L N 133-145 [address] [place] [address] [phone] Potassium 3.5 mmol/L N 3.5-5.0 Chloride 103 mmol/L N 101-111 Co2 Carbon Dioxide 24 mmol/L N 22-32 Anion Gap 8 mmol/L N 2-11 Glucose 129 mg/dL High 70-100 Blood Urea Nitrogen 20 mg/dL N 6-24 Creatinine 0.83 mg/dL N 0.51-0.95 BUN/Creatinine Ratio 24.1 High 8-20 Calcium 9.0 mg/dL N 8.6-10.3 Total Protein 7.2 g/dL N 6.4-8.9 Albumin 4.0 g/dL N 3.2-5.2 Globulin 3.2 g/dL N 2-4 Albumin/Globulin Ratio 1.3 N 1-3 Total Bilirubin 0.30 mg/dL N 0.2-1.0 Alkaline Phosphatase 81 U/L N 34-104 Alt 11 U/L N 7-52 Ast 18 U/L N 13-39 Egfr Non- 71.4 N >60 Egfr 91.8 N >60 23 Laboratory test 07/12/2015 [facility] Magnesium 1.9 mg/dL N 1.9-2.7 finding [address] [place] [address] [phone] Troponin-I (TnI) 0.00 ng/mL N <0.03 24 TSH (Thyroid Stim Horm) 4.29 ?IU/mL N 0.34-5.60 Lactic Acid 1.4 mmol/L N 0.5-2.0 25 Surgical Pathology 10/13/2012 [facility] S RUN DATE: [address] <[place] [address] NOTE> [phone] Comp Metabolic 10/02/2012 [facility] Sodium 139 mmol/L 133- [address] [place] [address] [phone] Potassium 3.8 mmol/L 3.5-5.0 Chloride 103 mmol/L 101-111 Co2 Carbon Dioxide 31.0 mmol/L 22-32 Anion Gap 5.0 mmol/L 2-11 Glucose 107 mg/dL High 70-100 Blood Urea Nitrogen 10 mg/dL 6-24 Creatinine 0.80 mg/dL 0.50-1.40 BUN/Creatinine Ratio 12.5 8-20 Calcium 8.9 mg/dL 8.1-9.9 Total Protein 6.4 g/dL 6.2-8.1 Albumin 3.7 g/dL 3.6-5.4 Globulin 2.7 g/dL 2-4 Albumin/Globulin Ratio 1.4 1-3 Total Bilirubin 0.6 mg/dL 0.4-1.5 Alkaline Phosphatase 81 U/L 30-110 Alt 16 U/L 14-54 Ast 26 U/L 12-42 Egfr Non- 75.0 >60 Egfr 96.5 >60 27 Laboratory test 10/02/2012 [facility] Erythrocyte Sed 24 mm/Hr 0-[address] [place] [address] [phone] C Reactive Protein 1.3 mg/dL High Less than 0.5 Fara (Anti-Nuclear AB) Screen Negative Negative 29 Pathologist Review (SEE NOTE) 30 Urinalysis 10/02/2012 [facility] Urine Color Yellow [address] [place] [address] [phone] Urine Appearance Clear Urine Specific [place] 1.004 Low 1.010-1.030 Urine Esterase Negative Negative Urine Nitrate Negative Negative Urine Urobilinogen Negative E.U./dL Negative Urine Protein Negative mg/dL Negative Urine pH 7.0 5-9 Urine Blood Trace Abnormal Negative Urine Ketones Negative mg/dL Negative Urine Bilirubin Negative Negative Urine Glucose Negative mg/dL Negative Urine Microscopic 10/02/2012 [facility] Urine WBC None Seen None Seen [address] [place] [address] [phone] Urine RBC 1+ (<3 /hpf) None Seen Urine Epithelial Cells 1+ Squamous /hpf None Seen Bacteria Urine None Seen None Seen CBC With 10/02/2012 [facility] White Blood 5.8 10^3/uL 4.8- 10.8 Manual Diff [address] [place] [address] [phone] Red Blood Count 4.26 10^6/uL 4.0-5.4 Hemoglobin 12.9 g/dL 12.0-16.0 Hematocrit 40 % 35-47 Mean Corpuscular Volume 94 fL 80-97 Mean Corpuscular Hemoglobin 30 pg 27-31 Mean Corpuscular HGB Conc 32 g/dL 31-36 Red Cell Distribution Width 14 % 10.5-15 Platelet Count 227 10^3/uL 150-450 Mean Platelet Volume 9 um3 7.4-10.4 Abs Neutrophils 2.6 10^3/uL 1.5-7.7 Abs Lymphocytes 1.3 10^3/uL 1.0-4.8 Abs Monocytes 0.6 10^3/uL 0-0.8 Abs Eosinophils 1.4 10^3/uL High 0-0.6 Abs Basophils 0 10^3/uL 0-0.2 Abs Nucleated RBC 0 10^3/uL Neutrophil % 42 % 38-83 Band % 1 % 0-8 Lymphocytes % 27 % 25-47 Monocytes % 10 % 0-13 Eosinophils % 19 % High 0-6 Basophil % 1 % 0-2 RBC Morphology Normal Normal Laboratory test 11/29/2009 [facility] Ferritin 89 NG/ML 11.0- [address] [place] [address] [phone] Iron & Iron 11/29/2009 [facility] Iron Total 98 g/dL 28- 170 Binding Capacity [address] [place] [address] [phone] Unsaturated Iron Binding 236 g/dL Total Iron Binding Capacity 334 g/dL 250-450 % Iron Saturation 29 % 15-55 CBC With 11/23/2009 [facility] White Blood 7.5 CUMM 4.8-10.8 Electronic Diff [address] [place] [address] [phone] Red Cell Count 4.66 CUMM 4.2-5.4 Hemoglobin 14.5 g/dL 12.0-16.0 Hematocrit 44 % 35-47 Mean Corpuscular Volume 93 um3 79-97 Mean Corpuscular Hemoglob 31 pg 27-31 Mean Corpuscular HGB Cone 33 g/dL 32-36 Redcell Distribution WDTH 14 % 10.5-15 Platelet Count 264 CUMM 150-450 Mean Platelet Volume 7.4 um3 7.4-10.4 Gran % 55.4 % 38-83 Lymph % 20.2 % Low 25-47 Mononuclear % 12.2 % High 1-9 Eosinophil %

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
--- OUTSIDE RECORDS SUMMARY | 2018-04-25 09:16 | XMS REPORT | Continuity of Care Document ---
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 including options for colonoscopy, FIT testing every 3 years, occult blood testing yearly
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
--- OUTSIDE RECORDS SUMMARY | 2018-04-25 09:16 | XMS REPORT | Continuity of Care Document ---
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 Unspecified 333.94 Restless Leg Syndrome Office Visit 09/06/2009 9:00a DO Not Use Medical Staff Coordinator Marquis Rowell 493.90 Asthma Unspec W/O AT Nicol Nash M.D.,FACP Status Asthmaticus 327.52 Sleep Related Leg Cramps 333.94 Restless Leg Syndrome 692.6 Dermatitis Contact Due To Plants (Except Food) Office Visit 07/06/2008 9:00a DO Not Use Medical Staff Coordinator Marquis Rowell 296.30 Depressive AT Nicol Nash M.D.,FAC Disorder Major Recurrent Unspec 627.2 Menopausal Or Female Climacteric State, Symptomatic 333.94 Restless Leg Syndrome 477.0 Rhinitis Allergic Due To Pollen Office Visit 05/06/2008 9:40a DO Not Use Medical Staff Coordinator Marquis Rowell 627.2 Menopausal Or AT Nicol Nash M.D.,FACP Female Climacteric State, Symptomatic 780.52 Insomnia Unspecified 296.30 Depressive Disorder Major Recurrent Unspec Office Visit 03/28/2008 10:00a DO Not Use Medical Staff Coordinator Thananart, 296.30 Depressive AT Nicol Hannah M.D. Disorder Major Recurrent Unspec Plan of Treatment Future Appointment(s):04/24/2018 9:00 am - Jaleesa León MD at [facility] Internal Medicine - Qceqscssj78/01/2019 - Jaleesa León MDZ00.01 Encounter for general adult medical examination with abnormaFollow up:2 weeks for PapI48.0 Paroxysmal atrial fibrillationComments:You should consider resuming a blood thinner as you are at risk for a blood clot due to A. Fib.Referral:Lyn Ford MD, Cardiovsclr ObcinpoN95.4 Other disorders of lungReferral:Santa Cabral MD, Pulmonary ZdvsocwtE02.909 Unspecified asthma, uncomplicatedNew Orders: Spirometry Pre/Post Bronchodilator, Ordered: 04/03/18H91.93 Unspecified hearing loss, bilateralComments:self-referral to MfluzaysfkmS24.9 Hypotension, unspecified
[2018-04-25 09:20] LABS: Activated Partial Thrombo Time 37.1 seconds (26.0-36.3); INR 0.93 (0.77-1.02)
[2018-04-25 09:21] LABS: Influenza A Molecular NEGATIVE (Negative); Influenza B Molecular NEGATIVE (Negative)
[2018-04-25 09:43] LABS: TSH (Thyroid Stimulating Horm) 3.22 mcIU/mL (0.34-5.60)
[2018-04-25 10:05] LABS: Urine Appearance Clear; Urine Bacteria 1+ (Absent); Urine Bilirubin Negative (Negative); Urine Blood 1+ (Negative); Urine Color Straw; Urine Glucose Negative (Negative); Urine Ketones Negative (Negative); Urine Nitrite Negative (Negative); Urine Protein Negative (Negative); Urine Red Blood Cell Absent (Absent); Urine Specific Gravity 1.003 (1.010-1.030); Urine Squamous Epithelial Cell Present (Absent); Urine Urobilinogen Negative (Negative); Urine White Blood Cell Absent (Absent)
[2018-04-25 10:14] LABS: Barbiturates Urine Screen None Detected (None Detect); Benzodiazepine Urine Screen None Detected (None Detect); Urine Cannabinoids Screen None Detected (None Detect)
[2018-04-25] MEDS ORDERED: Acetaminophen TAB* 325 MG PO PRN (12:27)
[2018-04-25] MEDS ORDERED: Metoprolol Tartrate IV* 1 MG/ML 5 ML VIAL IV PRN (12:31)
[2018-04-25] MEDS ORDERED: Enoxaparin(*) 40 MG/0.4 ML SYR SUBCUT SCH (13:00)
[2018-04-25] MEDS: NS 0.9% 1000 ML** 1,000 ML IV SCH ×2 (13:05→18:13)
--- NOTE | 2018-04-25 14:22 | HP ---
CC: Dr. León; Dr. Ford * HISTORY AND PHYSICAL: DATE OF ADMISSION: 04/25/18 TIME OF ADMISSION: 12:30 p.m. CHIEF COMPLAINT: "My heart went wonky this morning." HISTORY OF PRESENT ILLNESS: This is a 57-year-old female with history of atrial fibrillation, on no home medications, who presents to the emergency department with palpitations that began this morning at about 7:45 a.m. She woke up at 5 a.m. this morning and took a sinus medication for a sinus headache. She is not sure what the medication is and she went back to bed. She woke up then at 7 a.m. and her headache was better. She started to make a pot of coffee and then she felt a sudden onset of "thumpy" palpitations and fast heart rate. She reported some lightheadedness and she reported these symptoms to her roommates who brought her to the emergency department. She also noted some pain in the middle of her chest that was not radiating and was dull in nature, this has since resolved. The pain was not affected by exertion , though she admits she did not exert herself during this time because she was feeling so poorly. She does note a recent URI for which she saw Dr. Diggs on 04/20/18 and was recommended supportive care. She also believes she has had the flu twice this month, though she was not tested for it and she has lost about 8 pounds this month. Otherwise, she reports she has been in her usual state of health. She had not been drinking alcohol last night and she has not changed her caffeine intake recently. PAST MEDICAL HISTORY: 1. AFib. Last she was in Internal Medicine's office, she was in normal sinus rhythm. 2. History of hypotension. She reports that she is being worked up for POTS. 3. Asthma. PAST SURGICAL HISTORY: She had a cyst removed from the right side of her neck. HOME MEDICATIONS: She takes no medications. SOCIAL HISTORY: She does not smoke tobacco. Approximately 3 to 4 times per week, she drinks 1 to 2 alcoholic beverages. She drinks 1 cup of regular coffee per day, then switches to decaffeinate afternoon. 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 EMERGENCY CONTACT: She has not appointed a healthcare proxy, but she would appoint her sons, Brett and Zane King to make decisions for her if she would not be able to. REVIEW OF SYSTEMS: She denies fevers, chills, nausea, vomiting, diarrhea, sweat. She does note a mild cough, congestion, and sore throat. She has had palpitations, chest pain and she denies shortness of breath or orthopnea. PHYSICAL EXAMINATION GENERAL: Alert, well-appearing female who appears her stated age. She is in no distress. She is breathing comfortably and speaking in full sentences. VITAL SIGNS: Temperature 97.3; heart rate peaked at 189 when she arrived, it is currently 108; respiratory rate 22; pulse ox 99% on room air; blood pressure 103/55. HEENT: Pupils are 3 mm bilaterally and reactive to light. Oral mucosa is moist with no pharyngeal exudates or erythema. NECK: No JVP. She does have an old healed incision over the right sternocleidomastoid. CHEST: She is tachycardic and in a regular rhythm. I hear no murmurs. LUNGS: Clear bilaterally. ABDOMEN: Soft, nontender, nondistended and thin with no guarding or rebound. EXTREMITIES: No edema, no rashes or ulcers. NEUROLOGIC: Her strength is 5/5 throughout. PSYCH: Her affect is pleasant and appropriate. DIAGNOSTIC STUDIES/LAB DATA: White blood cells 7.9, hemoglobin 13.7, platelets 327. D-dimer less than 200. Sodium 139, potassium 4.1, chloride 104 , bicarb 27, BUN 19, creatinine 0.78, glucose 100, lactic acid 1.3. Troponin 0.00. TSH 3.22. A flu swab is negative. A urine tox screen is unremarkable and a urinalysis is unremarkable. Chest x-ray, no active cardiopulmonary disease. EKG is irregularly irregular at 131 with no P-waves and normal axis, 1 PVC, normal QRS and QTc, and no ST or T-wave changes. ASSESSMENT AND PLAN: This is a 57-year-old female with history of atrial fibrillation, who presents to the emergency department with palpitation and is found to be in atrial fibrillation with rapid ventricular response approximately 1 week after she was diagnosed with an upper respiratory infection. 1. Atrial fibrillation with rapid ventricular response. This may be multifactorial and related to a recent upper respiratory infections versus the home cold medication that she is taking. I wonder if it may be a decongestant and have some stimulant effects. She may also be a little dehydrated given her recent illness and weight loss and alternatively, she may simply have untreated atrial fibrillation and occasionally go into rapid ventricular response. She is currently on a Cardizem drip at 10 mg per hour and her heart rate is mostly in the 110s to 120s while I was in the room. I am adding p.r.n. metoprolol for sustained heart rate over 120. Given her occasional hypotension, she may respond better to the metoprolol than to the Cardizem. Of note, she is asymptomatic when she is hypotensive and reports frequent blood pressures at home in the 90s systolic and the 60s diastolic at baseline. Regarding anticoagulation, it appears Dr. León had a long conversation with her in her office about it and she declined it. Her CHADS2-VASc score is 1 and I discussed this risk with Sandra and she prefers to avoid anticoagulation which is not totally unreasonable. I am ordering an echocardiogram for tomorrow to rule out valvular disease affecting her atrial fibrillation. Her TSH is normal. Last she was admitted, she was instructed to avoid alcohol and caffeine , it appears she has not done this, this may help her and I would recommend avoidance of alcohol and caffeine as well. I am continuing gentle maintenance fluid as I think she may be a little volume deplete. 2. History of hypotension and concern for postural orthostatic tachycardia syndrome as an outpatient and she should continue outpatient workup as scheduled. 3. DVT prophylaxis. Lovenox subcutaneously. 4. Diet. Heart healthy with decaf okay. TIME SPENT: 45 minutes was spent on this admission. [id number]/[facility] #: [id number] CAMILLA
[2018-04-25] MEDS: Aspirin EC TAB* 81 MG TAB.EC PO ONE ×2 (21:50→22:54)
[2018-04-25] MEDS ORDERED: Aspirin TAB* 325 MG PO PRN (22:05)
[2018-04-25] MEDS ORDERED: Aspirin TAB* 325 MG ONE (22:48)
[2018-04-25] MEDS ORDERED: Aspirin EC TAB* 81 MG TAB.EC ONE (22:51)
[2018-04-26] MEDS ORDERED: Diltiazem IV VIAL* 125 MG in NS 0.9% 100 ML* 100 ML IV SCH ×2 (04:00→14:00)
[2018-04-26 05:31] LABS: ABS Basophils 0.1 10^3/ul (0-0.2); ABS Eosinophils 0.7 10^3/ul (0-0.6); ABS Lymphocytes 2.6 10^3/ul (1.0-4.8); ABS Monocytes 0.5 10^3/ul (0-0.8); ABS Neutrophils 3.7 10^3/ul (1.5-7.7); ABS Nucleated RBC 0 10^3/ul; Eosinophil % 9.1 %; Hematocrit 38 % (35-47); Hemoglobin 12.5 g/dl (12.0-16.0); Lymphocyte % 34.5 %; Mean Corpuscular HGB Conc 33 g/dl (31-36); Mean Corpuscular Hemoglobin 30 pg (27-31); Mean Corpuscular Volume 93 fL (80-97); Mean Platelet Volume 8.2 fL (7.4-10.4); Nucleated Red Blood Cells % 0.1; Platelet Count 290 10^3/ul (150-450); Red Blood Count 4.13 10^6/ul (4.00-5.40); Red Cell Distribution Width 14 % (10.5-15); White Blood Count 7.6 10^3/ul (3.5-10.8)
[2018-04-26 05:51] LABS: BUN/Creatinine Ratio 20.9 (8-20); Calcium 8.8 mg/dL (8.6-10.3); EGFR African American 109.4 (>60); EGFR Non-African American 90.4 (>60); Potassium 4.3 mmol/L (3.5-5.0)
--- NOTE | 2018-04-26 08:57 | PN ---
Subjective Date of Service: 04/26/18 Interval History: HOSPITALIST PROGRESS NOTE Patient seen and examined at bedside. Care reviewed and d/w Radha Riddle RN. She offers no new complaints today. Was able to sleep last night, but still feels palpitations. Denies chest pain or dyspnea. Family History: Unchanged from Admission Social History: Unchanged from Admission Past Medical History: Unchanged from Admission Objective Active Medications: Acetaminophen (Tylenol Tab*) 650 mg PO Q4H PRN PRN Reason: FEVER/PAIN Aspirin (Aspirin Tab*) 650 mg PO DAILY PRN PRN Reason: DISCOMFORT Last Admin: 04/25/18 22:52 Dose: 650 mg Enoxaparin Sodium (Lovenox(*)) 40 mg SUBCUT Q24H MJ Last Admin: 04/25/18 13:06 Dose: 40 mg Diltiazem HCl 125 mg/ Sodium (Chloride) 125 mls @ 5 mls/hr IVPB ED ONCE ONE; Protocol Stop: 04/26/18 09:46 Last Admin: 04/25/18 10:25 Dose: 7.5 mls/hr Diltiazem HCl 125 mg/ Sodium (Chloride) 125 mls @ 2.5 mls/hr IV Q24H MJ; Protocol Last Admin: 04/26/18 04:08 Dose: 2.5 mls/hr Metoprolol Tartrate (Lopressor Iv*) 5 mg IV Q6H PRN PRN Reason: HEART RATE/PULSE GREATER THAN: Vital Signs - 8 hr 04/26/18 04/26/18 04/26/18 01:00 01:30 02:00 Temperature Pulse Rate 88 80 65 Respiratory 15 14 18 Rate Blood Pressure 113/68 99/75 102/57 (mmHg) O2 Sat by Pulse 96 94 96 Oximetry 04/26/18 04/26/18 04/26/18 02:30 03:00 03:18 Temperature Pulse Rate 85 79 89 Respiratory 16 16 14 Rate Blood Pressure 102/72 93/67 (mmHg) O2 Sat by Pulse 95 95 97 Oximetry 04/26/18 04/26/18 04/26/18 03:30 03:40 04:00 Temperature 98.3 F Pulse Rate 85 87 Respiratory 17 18 Rate Blood Pressure 104/70 106/77 (mmHg) O2 Sat by Pulse 96 95 Oximetry 04/26/18 04/26/18 04/26/18 04:01 04:30 05:00 Temperature Pulse Rate 92 107 92 Respiratory 18 18 16 Rate Blood Pressure 101/74 99/71 (mmHg) O2 Sat by Pulse 95 95 95 Oximetry 04/26/18 04/26/18 04/26/18 05:01 06:00 06:01 Temperature Pulse Rate 98 90 Respiratory 16 19 19 Rate Blood Pressure (mmHg) O2 Sat by Pulse 95 96 Oximetry 04/26/18 07:49 Temperature 97.5 F Pulse Rate Respiratory Rate Blood Pressure (mmHg) O2 Sat by Pulse Oximetry Oxygen Devices in Use Now: None Appearance: Pleasant lady sitting up in bed in NAD. Eyes: No Scleral Icterus Ears/Nose/Mouth/Throat: Mucous Membranes Moist Neck: Trachea Midline Respiratory: Symmetrical Chest Expansion and Respiratory Effort, Clear to Auscultation Cardiovascular: - - Normal S1 and S2, irregularly irregular, tachy Abdominal: NL Sounds; No Tenderness; No Distention Extremities: No Edema Neurological: Alert and Oriented x 3, NL Muscle Strength and Tone Result Diagrams: 04/26/18 05:15 04/26/18 05:15 Assess/Plan/Problems-Billing Assessment: Mrs Aguillon is a 57yo F with PMH of Atrial fibrillation, asthma, possible POTS, who presented to ED with c/o palpitations, found to be in Afib RVR. - Patient Problems (1) Atrial fibrillation with RVR Comment: - Remains in Afib after 24h of Cardizem drip. - Cardiology input appreciated - plan for Xarlaloo, Multaq, LISSET CV in AM. - Plan for f/u with Dr Ford as outpatient. (2) DVT prophylaxis Comment: - Xarelto. (3) Full code status Status and Disposition: Inpatient. Transfer to Telemetry floor.
--- NOTE | 2018-04-26 10:13 | CONSULT ---
Subjective Date of Service: 04/26/18 - CC: heart racing Interval History: 57 yo with hx AF in 2016, previously on propafanone. Pt off antiarrhythmics since 2016, just seen by me in the office this month and in sinus rhythm at that time. Has had palpitations and what she described as afib on off since 2016, was still not interested in anticoagulation and antiarrhythmics scared her. Her current presentation is different in that the rate of her palpitations is much faster. Pt awoke with a OLIVERA, took a sinus pill, unknown name. Developed rapid pulse associated with SS chest pain, dizziness, hand numbness and SOB. No known hx of NAOMI, pt has been fatigue the last 2 weeks, but not chronically. She drinks several alcoholic beverages weekly including the evening prior to presenting in atrial fibrillation. Overnight the patient was placed on diltiazem gtt and feels better. Anticoagulation was not started as patient declined to take "forever". Family History: Unchanged from Admission - Mother with heart disease, mother with diabetes. Social History: Unchanged from Admission - Non smoker, regular beer several a week. Past Medical History: Unchanged from Admission - Paroxysmal afib, asthma, basal cell CA skin. Pt reports low BP with wrist cuff and symptoms PSx Hx: Finger sx 2016. Medications Active Medications: Acetaminophen (Tylenol Tab*) 650 mg PO Q4H PRN PRN Reason: FEVER/PAIN Aspirin (Aspirin Tab*) 650 mg PO DAILY PRN PRN Reason: DISCOMFORT Last Admin: 04/25/18 22:52 Dose: 650 mg Enoxaparin Sodium (Lovenox(*)) 40 mg SUBCUT Q24H MJ Last Admin: 04/25/18 13:06 Dose: 40 mg Diltiazem HCl 125 mg/ Sodium (Chloride) 125 mls @ 2.5 mls/hr IV Q24H MJ; Protocol Last Admin: 04/26/18 04:08 Dose: 2.5 mls/hr Metoprolol Tartrate (Lopressor Iv*) 5 mg IV Q6H PRN PRN Reason: HEART RATE/PULSE GREATER THAN: Home Medications: Gabapentin CAP(*) [Neurontin 100 mg CAP(*)] 100 mg PO SEE INSTRUCTIONS PRN 04/25 [History Confirmed 04/25/18] Review of Systems - Measurements Intake and Output: Intake and Output Last 24 Hours 04/24/18 04/25/18 04/26/18 04/27/18 04:59 04:59 04:59 04:59 Intake Total 3737.8 99.2 Output Total 3400 1350 Balance 337.8 -1250.8 Weight 142 lb 10.225 oz Intake: IV Fluids 2169.8 79 NS 144 79 Medicated IV 48 20.2 GEN - Diltiazem/Cardizem 48 20.2 Oral 1520 0 Output: Urine 3400 1350 - Review of Systems Constitutional Symptoms: Positive: Fatigue Cardiology: Positive: Palpitations, Faintness Neurology: Positive: Headaches Psychiatry: Positive: Unusual Fatigue Allergic/Immunologic: Positive: Athsma Review of Systems Statement: All other review of systems negative, unless stated above. The patient states she did not tolerate metoprolol in the past. Objective Vital Signs: Temp Pulse Resp BP Pulse Ox 97.5 F 109 21 99/84 97 04/26/18 07:49 04/26/18 09:00 04/26/18 09:00 04/26/18 09:00 04/26/18 09:00 Oxygen Devices in Use Now: None Appearance: fit appearing older middleaged woman, sitting in bed, comfortable. Eyes: No Scleral Icterus, PERRLA Ears/Nose/Mouth/Throat: Clear Oropharnyx, Mucous Membranes Moist Neck: NL Appearance and Movements; NL JVP, No Thyroid Enlargement, Masses Respiratory: Symmetrical Chest Expansion and Respiratory Effort, Clear to Auscultation Cardiovascular: NL Sounds; No Murmurs; No JVD - irregular and tachycardic. Abdominal: NL Sounds; No Tenderness; No Distention, No Hepatosplenomegaly Extremities: No Edema, No Clubbing, Cyanosis Skin: No Rash or Ulcers Neurological: Alert and Oriented x 3, NL Muscle Strength and Tone Lines/Tubes/Other Access: Clean, Dry and Intact Peripheral IV Laboratory Results: 04/26/18 05:15 04/26/18 05:15 INR (Anticoag Therapy) 0.93 (0.77-1.02) 04/25/18 08:38 APTT 37.1 seconds (26.0-36.3) H 04/25/18 08:38 Total Bilirubin 0.30 mg/dL (0.2-1.0) 04/25/18 08:38 AST 15 U/L (13-39) 04/25/18 08:38 ALT 9 U/L (7-52) 04/25/18 08:38 Alkaline Phosphatase 77 U/L (34-104) 04/25/18 08:38 CK-MB (CK-2) 1.1 ng/mL (0.6-6.3) 04/25/18 08:38 B-Natriuretic Peptide 191 pg/mL (<=100) H 04/25/18 08:38 Total Protein 7.2 g/dL (6.4-8.9) 04/25/18 08:38 Albumin 3.9 g/dL (3.2-5.2) 04/25/18 08:38 Globulin 3.3 g/dL (2-4) 04/25/18 08:38 Albumin/Globulin Ratio 1.2 (1-3) 04/25/18 08:38 TSH 3.22 mcIU/mL (0.34-5.60) 04/25/18 08:38 04/25/18 04/25/18 04/25/18 08:38 12:36 19:15 Troponin I 0.00 0.01 0.01 Diagnostic Imaging: CXR: No active disease. EKG Data: 04/25/18 ED 0800: Atrial fibrillation, RVR 176 bpm, PVC's. Mild ST depression inferior and lateral leads. Assessment/Plan 57 yo admitted with afib, RVR and symptoms, by history acute onset. Hx palpitations for 3 years she has perceived was PAF, but felt different than this. Afib risks include alcohol use, age >50, asthma hx, possible contribution of sinus medication, especially if it contains Sudafed, head ache and fatigue could represent NAOMI. Improved clinically with rate control. PAF: After discussion the patient is amenable to taking blood thinners for several weeks. After discussion the patient is amenable to Multaq, she understands it will not affect her BP and is very safe. Start Xarelto 20 mg/day Start Multaq 400 mg BID LISSET + CV in AM D/C on meds, f/u with me w/in a month. The patient will check on ingredients of sinus medication as outpatient. Cessation of alcohol was recommended when I saw her earlier this month and again today. Consideration of sleep eval as outpatient. Stress test can be obtained non urgently for CP, PAF. Negative trops reassuring. The natural course of afib and potential triggers were discussed with the patient, her questions answered.
[2018-04-26] MEDS: Dronedarone TAB* 400 MG PO SCH ×2 (11:29→19:58)
[2018-04-26] MEDS: Rivaroxaban TAB(*) 20 MG TAB PO SCH (11:34)
[2018-04-27] MEDS: Rivaroxaban TAB(*) 20 MG TAB PO SCH (08:39)
[2018-04-27] MEDS: Dronedarone TAB* 400 MG PO SCH (08:40)
[2018-04-27 10:04] VITALS: BP 100/61
--- NOTE | 2018-04-27 21:51 | DS ---
CC: Dr. León; Dr. Ford * DISCHARGE SUMMARY: DATE OF ADMISSION: 04/25/18 DATE OF DISCHARGE: 04/27/18 PRIMARY CARE PROVIDER: Dr. León. WEAVING MACHINE OPERATOR: Dr. Ford. DISCHARGE DIAGNOSIS: Atrial fibrillation with rapid ventricular rate. SECONDARY DIAGNOSES: 1. Paroxysmal atrial fibrillation. 2. Asthma. MEDICATION LIST: 1. Gabapentin 100 mg p.o. at bedtime as needed for restless legs. New medications: 1. Acetaminophen 650 mg p.o. q.4 hours p.r.n. fever. 2. Multaq 400 mg p.o. b.i.d. 3. Rivaroxaban 20 mg p.o. daily. Aspirin was discontinued. HOSPITAL COURSE: Mrs. Aguillon is a 57-year-old lady with a past medical history as stated above, who presented to the emergency room with complaints of palpitations. For more details about her presentation, I refer you to her history and physical. Her initial EKG revealed atrial fibrillation with a ventricular rate of 176. The patient was started on a Cardizem drip for rate control and initially she was not agreeable with anticoagulation, so cardioversion was not pursued. As she continues to be in rapid AFib 24 hours after Cardizem drip, a cardiology consultation was requested with Dr. Ford and her impression was that the patient presented with paroxysmal atrial fibrillation and her risk factors include alcohol use, age greater than 50, asthma, possible contribution of sinus medication, and she was also concerned with the possibility of obstructive sleep apnea. She had a lengthy conversation with the patient, and at that point, she was agreeable to start Multaq and Xarelto with plans for LISSET cardioversion on 04/27/18. On 04/26/18, after receiving her first dose of Multaq, the patient converted to normal sinus rhythm, and she was observed overnight and has remained stable with resolution of her symptoms. I contacted the collar pointer on-call, Dr. Harkins, and he was in agreement with discharge. The plan is for the patient to avoid alcohol and caffeine, continue Multaq and Xarelto. She is scheduled to have an echocardiogram at [facility] on 05/01/18 and a stress test on 05/05/18 and then she follow up with Dr. Ford. The patient was educated about signs and symptoms that would prompt her return to the emergency room. I also advised her that now she is on Xarelto, she should avoid aspirin and other antiinflammatories as they may increase her risk of bleed and she is agreeable with using Tylenol for pain. The patient will also need a sleep study as outpatient to rule out obstructive sleep apnea as one of the influencing factors on her paroxysmal atrial fibrillation. PHYSICAL EXAMINATION: Vital Signs: Temperature 97.8, heart rate is 66, respiratory rate is 19, oxygen saturation 96% on room air, blood pressure is 100 /61. General: The patient is a pleasant middle-aged lady, sitting up in bed, in no acute distress. CVS: Normal S1, S2. Regular rate and rhythm. Chest: Breath sounds bilaterally with no added sounds. Extremities: No edema. Neuro : She is alert and oriented x3. She is able to move all 4 extremities. DIET: Heart-healthy diet. The patient was advised to avoid caffeine and alcohol. ACTIVITY: As tolerated. DISPOSITION: To home. STATUS WHILE IN THE HOSPITAL: Inpatient. CONDITION AT THE TIME OF DISCHARGE: Fair. Please keep in mind this is a summarized version of this patient's hospital stay. If you need more information, please feel free to call me at [phone] or please obtain the full medical records. TIME SPENT: Approximately 45 minutes were spent to complete this discharge. [id number]/[facility] #: [id number] MTDKimberly
== END 2018-04-27 10:10 | disposition home or self-care (01) | DRG 201 ==
LOC: ED 08:22 → ICU 12:27
PROVIDERS: ADMIT Internal Medicine; ATTEND Internal Medicine
DX: I48.0 Paroxysmal atrial fibrillation (principal); J45.909 Unspecified asthma, uncomplicated; R51 Headache; G47.33 Obstructive sleep apnea (adult) (pediatric); Z72.89 Other problems related to lifestyle; Z91.040 Latex allergy status; Z79.01 Long term (current) use of anticoagulants; Z85.828 Personal history of other malignant neoplasm of skin; Z82.49 Family history of ischemic heart disease and other diseases of the circulatory system; Z83.3 Family history of diabetes mellitus; Z87.891 Personal history of nicotine dependence
CPT/HCPCS: 36415; 71045; 80048; 80053; 80307; 81003; 81015; 82550; 82553; 83605; 83735; 83880; 84443; 84484; 85025; 85379; 85610; 85730; 87086; 87641; 93005; 99285; A9270-GY; J1650

== ENCOUNTER 2019-02-27 08:22 | Observation (INO) | payer OTHER ==
[2019-02-27] MEDS ORDERED: Diltiazem IV push/loading dose 5 MG/ML 5 ML vial (25 mg) IV SLOW PU ONE ×2 (08:32→09:40)
[2019-02-27] MEDS ORDERED: Diltiazem IV push/loading dose 5 MG/ML 5 ML vial (25 mg) ONE (08:34)
--- NOTE | 2019-02-27 08:43 | ED ---
Palpitations / Dysrhythmia - HPI Summary HPI Summary: Patient is a 58 y/o F presenting to [facility] for a chief complaint of palpitations that began the morning of 02/27/19. Patient also reports chest pain that is described as chest pressure that began at the same time as the palpitation onset. She denies any fever, headache, or myalgia. She denies any aggravating or alleviating factors. PMHx is significant for atrial fibrillation. She denies taking blood thinners, but she does admit a history of taking Xarelto for one week which she stopped due to the side effects and hypotension she was experiencing at that time. She does not currently take any medications. Her inside wirer is Dr. Ford. - History of Current Complaint Chief Complaint: EDDysrhythmPalp Time Seen by Provider: 02/27/19 08:28 Hx Obtained From: Patient Onset/Duration: Sudden Onset, Still Present Timing: Constant Severity Initially: Moderate Severity Currently: Moderate Character: Fast Aggravating: Nothing Alleviating: Nothing Associated Signs & Symptoms: Chest Pain - Allergy/Home Medications Allergies/Adverse Reactions: Allergies Allergy/AdvReac Type Severity Reaction Status Date / Time latex Allergy Mild Rash Verified 04/25/18 08:44 Home Medications: Home Medications NK [No Home Medications Reported] 02/27/19 [History Confirmed 02/27/19] PMH/Surg Hx/FS Hx/Imm Hx Previously Healthy: Yes Endocrine/Hematology History: Denies: Hx Diabetes Cardiovascular History: Reports: Hx Atrial Fibrillation Respiratory History: Reports: Hx Asthma, Other Respiratory Problems/Disorders - ILL FOR 1 1/2 WEEKS COUGH,SOB,WHEEZING PER PT Musculoskeletal History: Reports: Other Musculoskeletal History - restless leg syndrome Denies: Hx Scoliosis Sensory History: Denies: Hx Contacts or Glasses, Hx Legally Blind, Hx Deafness, Hx Hearing Aid Opthamlomology History: Denies: Hx Contacts or Glasses, Hx Legally Blind EENT History: Denies: Hx Deafness Neurological History: Denies: Hx Headaches, Other Neuro Impairments/Disorders - Cancer History Cancer Type, Location and Year: BASAL CELL SKIN CANCER ON BACK NO TREATMENT - Surgical History Surgical History: None Surgery Procedure, Year, and Place: none Infectious Disease History: No Infectious Disease History: Denies: Traveled Outside the [place] in Last 30 Days - Family History Known Family History: Positive: Cardiac Disease - mother at age 80, Hypertension , Diabetes - Social History Occupation: Works From/At Home Lives: With Family Alcohol Use: Weekly Alcohol Amount: 2-3 Hx Substance Use: No Substance Use Type: Reports: None Hx Tobacco Use: Yes Smoking Status (MU): Former Smoker Type: Cigarettes Review of Systems Negative: Fever Positive: Palpitations, Chest Pain Negative: Myalgia Negative: Headache All Other Systems Reviewed And Are Negative: Yes Physical Exam - Summary Physical Exam Summary: Constitutional: Well-developed, Well-nourished, Alert. (-) Distressed Skin: Warm, Dry HENT: Normocephalic; Atraumatic Eyes: Conjunctiva normal Neck: Musculoskeletal ROM normal neck. (-) JVD, (-) Stridor, (-) Nuchal rigidity Cardio: Rhythm irregularly irregular, rate normal, Heart sounds normal; Intact distal pulses; Radial pulses are 2+ and symmetric. (-) Murmur Pulmonary/Chest wall: Effort normal. (-) Respiratory distress, (-) Wheezes, (-) Rales Abd: Soft, (-) tenderness, (-) Distension, (-) Guarding, (-) Rebound Musculoskeletal: (-) Edema Lymph: (-) Cervical adenopathy Neuro: Alert, Oriented x3 Psych: Mood and affect Normal Triage Information Reviewed: Yes Vital Signs On Initial Exam: Initial Vitals Temp Pulse Resp BP Pulse Ox 98.1 F 128 22 114/71 98 02/27/19 08:30 02/27/19 08:30 02/27/19 08:30 02/27/19 08:30 02/27/19 08:30 Vital Signs Reviewed: Yes Procedures - Sedation Patient Received Moderate/Deep Sedation with Procedure: No Diagnostics - Vital Signs Vital Signs Temp Pulse Resp BP Pulse Ox 02/27/19 08:30 98.1 F 128 22 114/71 98 - Laboratory Result Diagrams: 02/27/19 08:38 02/27/19 08:38 Lab Statement: Any lab studies that have been ordered have been reviewed, and results considered in the medical decision making process. - Radiology Chest X-ray Radiology Interpretation Completed By: Radiologist Summary of Radiographic Findings: Chest X-ray IMPRESSION: NO EVIDENCE FOR ACUTE FINDING. Reviewed by Dr. Brenner. - EKG 08:25 Cardiac Rate: Other Rate - 181 BPM EKG Rhythm: Atrial Fibrillation ST Segment: Normal Ectopy: None Summary of EKG Findings: An EKG at 08:25 reveals atrial fibrillation with 181 BPM and rapid V-rate, nml axis, nml intervals. No STEMI. No acute changes. Reviewed and interpreted by Dr. Brenner. Re-Evaluation - Re-Evaluation First Eval Re-Evaluation Time: 08:44 Change: Improved Comment: At 08:44, patients heart rate improved with Diltiazem 10 mg IV. Second Eval Re-Evaluation Time: 09:52 Change: Unchanged Comment: At 09:52, I discussed Dr. Carson recommendations with the patient. Third Eval Re-Evaluation Time: :55 Change: Unchanged Comment: At 09:55, patient will be started on a Diltiazem drip for atrial fibrillation with RVR. Course/Dx - Course Course Of Treatment: 58 y/o F w hx paroxysmal afib p/w afib w RVR, chest tightness and lightheadedness. - PE tachycardic, irregularly irregular. - labs notable for normal trop, K, Mg. Hx of hypotension, has been on multiple antiarrhythmics and rate control's with little success. Patient is given diltiazem 10 mg here 2. One dose of IV digoxin. Patient remains in atrial flutter with RVR, placed on digoxin drip. Given 2 L of fluids. Plan for admission to hospital. Patient not currently anticoagulated, with stable blood pressure will hold on cardio version. - Diagnoses Provider Diagnoses: Atrial fibrillation with RVR - Physician Notifications Discussed Care Of Patient With: Travis Fernando - At 08:59, Dr. Fernando recommends 0.25 mg Digoxin, and if the patient goes into sinus again, recommends Multaq. At 10:10, patients case was reviewed by Dr. Michelle Michelle who agrees to admit the patient to [facility] with a diagnosis of atrial fibrillation with RVR. Time Discussed With Above Provider: 08:59 Instructed by Provider To: Admit As Inpatient Admit/Transition Orders Completed By ED Provider: Yes - CXR pending - Critical Care Time Critical Care Time: 30-74 min - Upon my evaluation, this patient had a high probability of imminent or life-threatening deterioration due A. fib with RVR which required my direct attention, intervention, and personal management. I have personally provided 35 minutes of critical care time exclusive of time spent on separately billable procedures. Time includes review of laboratory data , radiology results, discussion with consultants, and monitoring for potential decompensation. Interventions were performed as documented above. Discharge ED - Sign-Out/Discharge Documenting (check all that apply): Patient Departure - Admit - Discharge Plan Condition: Stable Disposition: ADMITTED TO [facility] - Billing Disposition and Condition Condition: STABLE Disposition: Admitted to [facility] - Attestation Statements Document Initiated by Narayanibe: Yes Documenting Scribe: Dinora Shirley Provider For Whom Alice is Documenting (Include Credential): Jorge Brenner MD Scribe Attestation: IDinora, scribed for Jorge Brenner MD on 02/27/19 at 1323. Scribe Documentation Reviewed: Yes Provider Attestation: The documentation as recorded by the eobnyeDinora accurately reflects the service I personally performed and the decisions made by , Jorge Brenner MD Status of Scribe Document: Viewed
[2019-02-27 08:47] LABS: ABS Eosinophils 0.7 10^3/ul (0-0.6); ABS Lymphocytes 1.8 10^3/ul (1.0-4.8); ABS Monocytes 0.6 10^3/ul (0-0.8); Eosinophil % 11.4 %; Hematocrit 40 % (35-47); Hemoglobin 13.4 g/dL (12.0-16.0); Lymphocyte % 29.5 %; Mean Corpuscular HGB Conc 34 g/dL (31-36); Mean Corpuscular Hemoglobin 31 pg (27-31); Mean Corpuscular Volume 92 fL (80-97); Mean Platelet Volume 7.8 fL (7.4-10.4); Nucleated Red Blood Cells % 0.1; Platelet Count 293 10^3/uL (150-450); Red Blood Count 4.35 10^6 /uL (3.70-4.87); Red Cell Distribution Width 14 % (10-15); White Blood Count 6.2 10^3/uL (3.5-10.8)
[2019-02-27] MEDS ORDERED: NS 0.9% 1000 ML** 1,000 ML IV ONE ×2 (08:50→09:46)
[2019-02-27 08:56] LABS: INR 0.96 (0.82-1.09)
[2019-02-27] MEDS ORDERED: Digoxin IV* 0.5 MG/2 ML AMP (0.25 MG/ML) IV SLOW PU ONE ×2 (08:56→10:48)
[2019-02-27 09:02] LABS: Albumin 3.9 g/dL (3.2-5.2); Albumin/Globulin Ratio 1.2 (1-3); BUN/Creatinine Ratio 24.4 (8-20); Calcium 9.4 mg/dL (8.6-10.3); EGFR African American 86.3 (>60); EGFR Non-African American 71.4 (>60); Globulin 3.3 g/dL (2-4); Total Bilirubin 0.4 mg/dL (0.2-1.0); Total Protein 7.2 g/dL (6.4-8.9)
[2019-02-27] MEDS ORDERED: Diltiazem IV BAG* D5W Premix 125 MG/125 ML BAG IV SCH (10:00)
[2019-02-27] MEDS ORDERED: Acetaminophen TAB* 325 MG PO PRN (11:26)
[2019-02-27] MEDS ORDERED: Al Hydrox/Mg Hydrox/Simet LIQ* 30 ML UDC PO PRN (11:26)
[2019-02-27] MEDS ORDERED: NS 0.9% 1000 ML** 1,000 ML IV SCH (11:30)
[2019-02-27] MEDS ORDERED: Enoxaparin(*) 80 MG/0.8 ML SYR SUBCUT SCH (12:00)
[2019-02-27] MEDS ORDERED: proPAFENone TAB* 150 MG PO ONE (12:35)
[2019-02-27] MEDS ORDERED: Potassium Chloride* LIQUID 20 MEQ/15 ML UDC PO ONE (12:35)
--- NOTE | 2019-02-27 12:45 | HP ---
CC: Dr. León; Dr. Ford; Dr. Fernando* HISTORY AND PHYSICAL: DATE OF ADMISSION: 02/27/19 PRIMARY CARE PROVIDER: Dr. León. CHIEF COMPLAINT: Palpitations. HISTORY OF PRESENT ILLNESS: Sandra Aguillon is a 58-year-old female with history of paroxysmal atrial fibrillation, for which she is not on medications, who presented to the hospital complaining of palpitations. The patient stated that she got up in the morning, palpitations developed at 8 a.m. She also felt generalized weakness, which she usually feels when she is in atrial fibrillation. She felt pounding in her chest, but denies any chest pain or shortness of breath. She came into the ED with reported heart rate of 190. She was placed on Cardizem drip and received a dose of digoxin 0.25 mg IV. Currently, she is on 5 mg of IV diltiazem drip, still with the heart rate in the 120s. She feels more comfortable now. The patient stated that she had an episode of atrial fibrillation in April 2018. At this point when she was about to be cardioverted, she converted to sinus rhythm. She stated that although she was discharged on Xarelto, it caused her gums to bleed, then she discontinued it herself. She also was discharged on Multaq that apparently she was not taking because she felt that her heart rate was too slow on it. A month after her hospital stay at [facility] in the end of April, some time in June 2018, the patient went to [place], had another episode of atrial fibrillation from which she converted spontaneously again. The patient saw Dr. Ford in June 2018 and she was noted to have paroxysmal supraventricular tachycardia on Holter, but no known episodes of atrial fibrillation. Currently, the patient takes no medications. PAST MEDICAL HISTORY: 1. Asthma. 2. Paroxysmal atrial fibrillation. 3. History of nosebleed on Xarelto. 4. History of slow heart rate and hypotension on Multaq and beta-blockers in the past. 5. History of microscopic hematuria. 6. History of restless legs syndrome. MEDICATIONS: None. ALLERGIES: LATEX. FAMILY HISTORY: Mother with history of diabetes, atrial fibrillation, who of heart disease, but also had history of cervical cancer. Mother of heart disease at the age of 74. Father secondary to alcoholic complications. SOCIAL HISTORY: The patient is and lives by herself. She names both of her sons as her surrogates. She drinks alcohol occasionally 2 to 3 beers "every now and then." She denies any current tobacco smoking. She denies any drug use. 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 REVIEW OF SYSTEMS: Please see history of present illness. In addition to the above mentioned, the patient denies any shortness of breath. She has history of mild asthma, but that was not in exacerbation recently and she is not taking medications for it. She describes it mostly as "allergies." She only noted that on the 02/21/19, she had 3 beers and after that she developed severe headache, nausea and vomiting and frequent bowel movements. She stated that she felt like she had an acute alcohol intoxication/poisoning, but she felt that she did not drink enough to cause it to happen. The symptoms resolved spontaneously. All the remaining 12 systems were reviewed with the patient and were otherwise negative. PHYSICAL EXAMINATION GENERAL: The patient is a very pleasant 58-year-old female who is in no acute distress. Alert, awake, oriented x3. VITAL SIGNS: Blood pressure of 105/80, heart rate of 139 and irregularly irregular, respiratory rate 21, oxygen saturation 98% on room air, temperature of 98.1. HEENT: Head: Atraumatic, normocephalic. Eyes: Pupils are equal and reactive to light and accommodation. Oropharynx clear. Mucosa moist. NECK: Supple. No JVD. No bruits bilaterally. RESPIRATORY: Clear to auscultation bilaterally. CARDIOVASCULAR: Irregularly irregular rhythm. No murmur. ABDOMEN: Soft, nontender. Bowel sounds present in all 4 quadrants. EXTREMITIES: There is no edema. Pulses are +2 bilaterally. No clubbing or cyanosis. SKIN: On evaluation of the skin, no ecchymotic areas or rashes noted. DIAGNOSTIC STUDIES/LAB DATA: White blood cell count of 6.2, hemoglobin of 13.5 , hematocrit of 40, and platelets of 293. Sodium was 138, potassium 4.0, chloride 102, carbon dioxide 30, BUN 20, creatinine 0.82. Liver function tests unremarkable. Magnesium of 2.0. Troponin of 0. The patient's portable chest x-ray, impression: "No evidence of acute finding. " The patient's EKG showed atrial fibrillation with a heart rate of 181 beats per minute with ST depressions in leads V4 to V6. ASSESSMENT AND PLAN: 1. Atrial fibrillation with rapid ventricular response. The patient has history of problems with tolerating medications and she wishes not to be on anticoagulants past her hospital stay. She agrees to Lovenox during her hospital stay. The patient is going to be continued on her Cardizem drip. We will administer another dose of digoxin IV of 0.25 mg. She is going to be admitted to the intensive care unit due to her mild hypotension. I will also give her intravenous fluids gently. I also spoke with Dr. Fernando who will see the patient in consultation. 2. The patient's asthma is not in exacerbation. She is not on clear medications. 3. For DVT prophylaxis, the patient is going to be placed on full dose of Lovenox for atrial fibrillation. 4. The patient's code status is full. Her surrogates are her sons as mentioned above. TIME SPENT: Approximately 62 minutes was spent on the admission of this patient , more than half of that time was spent [id number] with the patient during the interview and physical exam. [id number]/[facility] #: [id number] CAMILLA
[2019-02-27] MEDS ORDERED: Thiamine TAB* 100 MG TAB PO SCH (13:00)
[2019-02-27 13:41] LABS: Folate 15.56 ng/mL (>3.99)
--- NOTE | 2019-02-27 14:56 | CONS ---
CC: Dr. Travis Fernando; Dr. Ford; Dr. León CARDIOLOGY CONSULTATION: DATE OF CONSULT: 02/27/19 CONSULTING PHYSICIAN: Dr. Michelle. REASON FOR EVALUATION: Paroxysmal atrial fibrillation. HISTORY OF PRESENT ILLNESS: This is a very pleasant 58-year-old woman who has a history of palpitations, paroxysmal atrial fibrillation, and SVT. She said her symptoms started about 2 years ago and she had 2 episodes in 2015of AFib. This is her third episode of prolonged AFib this year. She had one in May, which apparently converted after 30 hours with rate control medications. She was started on anticoagulation, but developed gingival bleeding. She had a recurrent episode in June of 2018 in [place]. She was seen in the hospital and given p.o. meds and transferred to [place] and converted before she got to [place]. She subsequently saw Dr. Ford in June, who said that she had felt poorly on Multaq and her event monitor on 05/28/18 revealed brief episodes of supraventricular tachycardia, asymptomatic. Of note, she tends to run low normal blood pressures and did not tolerate a beta-ashley due to low blood pressures and did not tolerate Multaq. She was offered propafenone, but declined that due to her concerns about medications. She was offered a referral for EP at that time, but declined that. She was in her usual state of health with occasional episodes of brief flutters until this morning, she was standing at her counter and pouring a glass of milk and developed rapid AFib. She had chest pressure, lightheadedness, fatigue, and dyspnea. She came to the hospital and was found to be in atrial fibrillation with rapid ventricular response in the 180s and occasional PVCs. She also had diffuse ST depressions. She was treated with IV diltiazem and IV dig with some slowing of her heart rate and she said she feels better now. No chest discomfort. She denies any syncope. No orthopnea. No peripheral edema normally. She does report that a week ago she overindulged in alcohol and had several draft beers which is unusual for and then developed nausea and vomiting the next day. Her son at the bedside said that she was drunk and she also said that she had another episode of having 3 drinks in 1 setting also this week. She said normally she has 1 or 2 beers 3 to 4 times a week. She denies fevers, chills, sweats, cough , hematemesis, hematochezia. 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 She denies hypertension. PAST MEDICAL HISTORY: She does have a history of elevated cholesterol with high HDL. She has a history of seasonal allergies and occasionally takes loratadine. She has a history of paroxysmal atrial fibrillation. PAST SURGICAL HISTORY: She denies any past surgeries. MEDICATIONS: As an outpatient, her medications include p.r.n. loratadine. As an inpatient, she is on: 1. IV diltiazem 5 mg an hour. 2. Enoxaparin 70 mg q.12. 3. Sodium chloride IV saline at 125 mL an hour. 4. Acetaminophen p.r.n. ALLERGIES: Her allergies listed in the chart include LATEX. felt poorly on propafenone, low bp's on other meds.. unclear if she ever tried prescribed multaq. FAMILY HISTORY: She has 5 siblings, none of whom had premature coronary artery disease. She had cousins who had AFib. Her mother in her 70s of coronary artery disease. Father's history is unknown. SOCIAL HISTORY: She denies tobacco use except for a brief stint as a teenager. She is , has 2 sons, normal spontaneous deliveries. REVIEW OF SYSTEMS: Review of systems x12 was negative except as above. PHYSICAL EXAM: She is a well-developed, well-nourished female, in no apparent distress. Heart rate approximately 120s, irregular; blood pressure was 98/60 in the right arm, sitting upright. No significant JVD. Carotids 2+ without bruits. No cervical adenopathy. No thyromegaly. Extraocular muscles intact. Sclerae anicteric. Cardiac Exam: S1, S2 with an intermittent soft holosystolic murmur 1- 2/6 to the left lower sternal border. Chest was clear. No CVAT. Abdominal Exam: Bowel sounds present. Nontender. Femoral pulses intact without bruits. Distal pulses intact. No edema. Motor strength 5/5 bilaterally. Alert and oriented x3. DIAGNOSTIC STUDIES/LAB DATA: Her EKG revealed atrial fibrillation with a rapid ventricular response and [address] depressions inferolaterally, occasional PVCs, rSR prime in V1 and V2. Labs include sodium of 138, potassium of 4.0, BUN of 20, creatinine of 0.82 with elevated BUN/creatinine ratio. Troponins of 0 and 0. Normal CBC. Chest x-ray revealed no evidence for acute findings. Her past noninvasive testing includes an echocardiogram from 05/01/18, which revealed EF of 60%, trace MR, trace TR. Compared to 07/10/15, no significant change except the MR was mild previously. She had a stress test on 05/05/18. At that time, she was able to complete 9 minutes and 32 seconds of Gavin to 10.9 METs. She achieved 92% of maximum predicted heart rate. She had normal BP response. She had some VPCs and rare PACs. Negative EKG. Her event monitor from November of 2015 revealed sinus rhythm with sinus arrhythmia, 10 triggered events of palpitations correlated with PVCs and ventricular couplets, dyspnea correlated with sinus bradycardia at 55 to 70, occasional brief SVT up to 136 beats per minute, asymptomatic. She did have a stress nuclear in April of 2007, which was negative for ischemia by EKG findings and nuclear possible stress-induced ischemia in the septal wall near the base of the heart, normal ejection fraction. IMPRESSION AND PLAN: My impression is that Ms. Aguillon has recurrent episode of atrial fibrillation, which is debilitating and compromising. The etiology is unclear, but may in part be related to alcohol use. We did discuss options for treatment. Given her intolerance of multiple medications and low normal blood pressures, medical treatment is problematic. We also discussed the potential for antiarrhythmic, perhaps propafenone versus referral for consideration of ablation. We also talked about the possibility of a cardioversion if she fails to convert to sinus rhythm. For the time being, I would recommend the followin. We would continue a low dose of diltiazem as you are doing. 2. We would load with dig as you are doing to try to control heart rate without causing excessive hypotension. 3. If she fails to convert, we could consider a cardioversion. 4. We would continue anticoagulation as you are doing and I recommended a month of anticoagulation after cardioversion. Her CHADS-VASc2 score is 1. 5. I did strongly recommend she avoid dehydration and avoid alcohol, which may be lowering the threshold for atrial fibrillation. 6. I also suggested she minimize caffeine. [id number]/[facility] #: [id number] CAMILLA
[2019-02-27 15:19] VITALS: BP 108/53
--- NOTE | 2019-02-27 20:31 | DS ---
CC: Dr. León; Dr. Fernando; Dr. Ford* SHORT DISCHARGE SUMMARY: DATE OF ADMISSION: 02/27/19 DATE OF DISCHARGE: 02/27/19 PRIMARY CARE PROVIDER: Dr. León. DISPOSITION AT DISCHARGE: Home. CONDITION AT DISCHARGE: Stable. DISCHARGE DIAGNOSIS: Atrial fibrillation with rapid ventricular response. The patient converted to sinus rhythm after 2 doses of 0.25 mg of digoxin IV and Cardizem drip for approximately 5 hours. MEDICATIONS AT DISCHARGE: None. CONSULTATIONS: Dr. Fernando from Cardiology. DIAGNOSTIC STUDIES/LAB DATA: Apart from the one as mentioned in the history and physical dictated earlier on today, the patient had a second troponin, which was reported at 0. Her vitamin B12 level was 438 and folate was 15.5. HOSPITALIZATION COURSE: Sandra Aguillon is a 58-year-old female who has history of paroxysmal atrial fibrillation. The patient came in with atrial fibrillation with rapid ventricular response. She was placed on Cardizem drip and she had 2 doses of IV digoxin infused. The patient was seen by Dr. Fernando in consultation. By the time she reached the intensive care unit, shortly thereafter, she converted to sinus rhythm. She is asymptomatic right now. She spoke with Dr. Fernando. The patient wishes not to be placed on anticoagulation and she wishes not to be placed on any medications for prevention of her recurrent AFib. She was educated about the need of abstaining from alcohol and caffeinated beverages. She is going to be discharged to home with recommendation to follow up with her primary care provider, Dr. León in 4 to [address] Ford in approximately 1 to 2 months. PHYSICAL EXAMINATION AT DISCHARGE: Unchanged from admission apart from that that currently the patient's heart rate is at 69 beats per minute and regular. [id number]/[facility] #: [id number] [facility]
== END 2019-02-27 16:00 | disposition home or self-care (01) ==
LOC: ED 08:22 → ICU 11:18
PROVIDERS: ADMIT Internal Medicine; ATTEND Internal Medicine
DX: I48.20 Chronic atrial fibrillation, unspecified (principal); I48.0 Paroxysmal atrial fibrillation; J45.909 Unspecified asthma, uncomplicated; Z79.01 Long term (current) use of anticoagulants; Z87.891 Personal history of nicotine dependence; R07.9 Chest pain, unspecified
CPT/HCPCS: 36415; 71045; 80053; 82607; 82746; 83735; 84484; 85025; 85610; 87641; 93005; 96372; 96374; 96375; 96376; 99285; A9270-GY; G0378; J1160; J1650; J3490

== ENCOUNTER 2021-04-19 13:59 | Observation (INO) ==
[2021-04-19] MEDS ORDERED: Adenosine 3 MG/ML 2 ml VIAL (6 mg) ONE ×2 (14:22→14:30)
[2021-04-19] MEDS ORDERED: Etomidate 20 mg/10 ml 2 MG/ML 10 ml VIAL ONE (14:32)
[2021-04-19] MEDS ORDERED: Diltiazem IV push/loading dose 5 MG/ML 5 ML vial (25 mg) ONE (14:35)
[2021-04-19 14:55] LABS: ABS Eosinophils 0.2 10^3/ul (0-0.6); ABS Lymphocytes 2.1 10^3/ul (1.0-4.8); ABS Monocytes 0.6 10^3/ul (0-0.8); ABS Neutrophils 4.3 10^3/ul (1.5-7.7); Eosinophil % 3.2 %; Hematocrit 38 % (35-47); Hemoglobin 12.6 g/dL (12.0-16.0); Lymphocyte % 29.3 %; Mean Corpuscular HGB Conc 33 g/dL (31-36); Mean Corpuscular Hemoglobin 30 pg (27-31); Mean Corpuscular Volume 92 fL (80-97); Mean Platelet Volume 7.5 fL (7.4-10.4); Nucleated Red Blood Cells % 0.1; Platelet Count 280 10^3/uL (150-450); Red Blood Count 4.15 10^6 /uL (3.70-4.87); Red Cell Distribution Width 14 % (10-15); White Blood Count 7.3 10^3/uL (3.5-10.8)
[2021-04-19 15:02] LABS: INR 1.12 (0.86-1.15)
[2021-04-19 15:37] LABS: Albumin 3.7 g/dL (3.2-5.2); Albumin/Globulin Ratio 1.2 (1-3); Calcium 8.8 mg/dL (8.6-10.3); Globulin 3.1 g/dL (2-4); Potassium 3.6 mmol/L (3.5-5.0); Total Bilirubin 0.4 mg/dL (0.2-1.0); Total Protein 6.8 g/dL (6.4-8.9); eGFR CKD-EPI 76.8 (>60)
[2021-04-19] MEDS ORDERED: Diltiazem IV push/loading dose 5 MG/ML 5 ML vial (25 mg) IV SLOW PU ONE ×2 (15:51→18:00)
[2021-04-19 17:52] LABS: Magnesium 1.8 mg/dL (1.9-2.7)
[2021-04-19] MEDS ORDERED: Adenosine 3 MG/ML 2 ml VIAL (6 mg) IV PUSH ONE ×3 (17:54→17:58)
[2021-04-19 18:08] LABS: TSH Ultra Thyroid Stim Horm 2.81 mcIU/mL (0.34-5.60)
[2021-04-19] MEDS ORDERED: Lactated Ringers 1000 ml BAG 1,000 ML IV ONE (18:18)
[2021-04-19] MEDS ORDERED: Potassium Chlor 10 meq TAB PO ONE (18:18)
[2021-04-19] MEDS ORDERED: Magnesium Sulfate IV 1GM/100ML 1 GM/100 ML BAG IV ONE (18:19)
[2021-04-19 18:25] LABS: Troponin I 0.08 ng/mL (<0.03)
[2021-04-19] MEDS: Enoxaparin 60 MG/0.6 ML SYR SUBCUT SCH (20:02)
[2021-04-20 00:18] LABS: Troponin I 0.04 ng/mL (<0.03)
[2021-04-20 06:03] LABS: ABS Eosinophils 0.4 10^3/ul (0-0.6); ABS Monocytes 0.5 10^3/ul (0-0.8); ABS Neutrophils 2.8 10^3/ul (1.5-7.7); Eosinophil % 6.9 %; Hematocrit 34 % (35-47); Hemoglobin 11.5 g/dL (12.0-16.0); Lymphocyte % 34.8 %; Mean Corpuscular HGB Conc 34 g/dL (31-36); Mean Corpuscular Hemoglobin 31 pg (27-31); Mean Corpuscular Volume 93 fL (80-97); Mean Platelet Volume 7.8 fL (7.4-10.4); Platelet Count 239 10^3/uL (150-450); Red Blood Count 3.65 10^6 /uL (3.70-4.87); Red Cell Distribution Width 14 % (10-15); White Blood Count 5.7 10^3/uL (3.5-10.8)
[2021-04-20 06:29] LABS: Calcium 8.7 mg/dL (8.6-10.3); HDL Cholesterol 68.3 mg/dL; Potassium 4.1 mmol/L (3.5-5.0); eGFR CKD-EPI 98.3 (>60)
[2021-04-20] MEDS: Enoxaparin 60 MG/0.6 ML SYR SUBCUT SCH (08:02)
[2021-04-20 11:50] VITALS: BP 109/60
== END 2021-04-20 15:25 | disposition home or self-care (01) ==
LOC: ED 13:59 → EDHOLD 13:59 → MEDTELE 22:21
PROVIDERS: ADMIT Nurse Practitioner; ATTEND Student in an Organized Health Care Education/Training Program

== ENCOUNTER 2023-03-04 15:10 | Inpatient (IN) ==
[2023-03-04] MEDS ORDERED: Iodixanol (CONTRAST) 320 MG/ML 100 ML SDV IV ONE (15:31)
[2023-03-04 15:47] LABS: ABS Basophils 0.1 10^3/uL (0.0-0.1); ABS Eosinophils 0.5 10^3/uL (0.0-0.5); ABS Lymphocytes 1.9 10^3/uL (1.0-4.8); ABS Monocytes 0.7 10^3/uL (0.0-0.9); ABS Neutrophils 4.8 10^3/uL (1.5-7.6); Eosinophil % 6.4 %; Hematocrit 37.1 % (35-45); Hemoglobin 12.6 g/dL (11.5-14.3); Mean Corpuscular Hemoglobin 31.3 pg (27-33); Mean Corpuscular Hgb Conc 33.8 g/dL (31-36); Mean Corpuscular Volume 92.4 fL (80-97); Mean Platelet Volume 7.1 fL (7.5-11.2); Nucleated Red Blood Cells % 0.1 %/100WBC (0.0-0.8); Platelet Count 321 10^3/uL (150-450); Red Blood Count 4.02 10^6/uL (3.63-4.92); Red Cell Distribution Width 13.8 % (12-17)
[2023-03-04 15:55] LABS: Activated Partial Thrombo Time 44.2 seconds (26.0-38.0); INR 1.65 (0.83-1.13)
[2023-03-04 16:07] LABS: Albumin 3.5 g/dL (3.2-5.2); Albumin/Globulin Ratio 1.1 (1-3); Calcium 8.9 mg/dL (8.6-10.3); Creatinine, Serum 0.7 mg/dL (0.51-0.95); Globulin 3.2 g/dL (2-4); HDL Cholesterol 51.6 mg/dL; Indirect Bilirubin 0.3 mg/dL (0.3-1.0); Potassium 4.2 mmol/L (3.5-5.0); Total Bilirubin 0.3 mg/dL (0.2-1.0); Total Protein 6.7 g/dL (6.4-8.9); eGFR CKD-EPI 97.1 (>60)
[2023-03-05] MEDS ORDERED: Senna TAB 8.6 mg TAB PO PRN (04:25)
[2023-03-05] MEDS ORDERED: Magnesium Hydroxide LIQ 30 ML UDC PO PRN (04:25)
[2023-03-05 06:39] LABS: ABS Eosinophils 0.7 10^3/uL (0.0-0.5); ABS Lymphocytes 1.7 10^3/uL (1.0-4.8); ABS Monocytes 0.8 10^3/uL (0.0-0.9); ABS Neutrophils 3.5 10^3/uL (1.5-7.6); Eosinophil % 9.8 %; Hematocrit 38.9 % (35-45); Hemoglobin 13.2 g/dL (11.5-14.3); Lymphocyte % 25.4 %; Mean Corpuscular Hemoglobin 31.3 pg (27-33); Mean Corpuscular Hgb Conc 33.9 g/dL (31-36); Mean Corpuscular Volume 92.2 fL (80-97); Mean Platelet Volume 7.4 fL (7.5-11.2); Platelet Count 334 10^3/uL (150-450); Red Blood Count 4.21 10^6/uL (3.63-4.92); Red Cell Distribution Width 13.7 % (12-17); White Blood Count 6.7 10^3/uL (3.8-11.8)
[2023-03-05 07:14] LABS: Calcium 9.2 mg/dL (8.6-10.3); Creatinine, Serum 0.74 mg/dL (0.51-0.95); eGFR CKD-EPI 90.9 (>60)
[2023-03-05] MEDS ORDERED: Sulfur Hexaflouride MICROSPHR 25 MG VIAL ONE (09:18)
[2023-03-05] MEDS: Polyethylene Glycol 3350 17 GM PACKET PO PRN (09:51)
[2023-03-06] MEDS ORDERED: Al Hydrox/Mg Hydrox/Simet LIQ 30 ML UDC PO ONE (07:09)
[2023-03-06 09:03] LABS: High Sensitivity Troponin 1 Hr 20 pg/mL (<15)
[2023-03-07] MEDS: Enoxaparin 80 MG/0.8 ML SYR SUBCUT SCH (21:15)
[2023-03-08 06:28] LABS: ABS Eosinophils 0.4 10^3/uL (0.0-0.5); ABS Lymphocytes 2.1 10^3/uL (1.0-4.8); ABS Monocytes 0.5 10^3/uL (0.0-0.9); ABS Neutrophils 2.7 10^3/uL (1.5-7.6); Eosinophil % 6.3 %; Hematocrit 35.2 % (35-45); Hemoglobin 12.2 g/dL (11.5-14.3); Lymphocyte % 36.6 %; Mean Corpuscular Hemoglobin 31.7 pg (27-33); Mean Corpuscular Hgb Conc 34.7 g/dL (31-36); Mean Corpuscular Volume 91.5 fL (80-97); Mean Platelet Volume 7.4 fL (7.5-11.2); Nucleated Red Blood Cells % 0.1 %/100WBC (0.0-0.8); Platelet Count 327 10^3/uL (150-450); Red Blood Count 3.85 10^6/uL (3.63-4.92); Red Cell Distribution Width 13.6 % (12-17); White Blood Count 5.7 10^3/uL (3.8-11.8)
[2023-03-08 06:48] LABS: Calcium 8.9 mg/dL (8.6-10.3); Creatinine, Serum 0.8 mg/dL (0.51-0.95); Magnesium 1.9 mg/dL (1.9-2.7); Potassium 4.1 mmol/L (3.5-5.0); eGFR CKD-EPI 82.7 (>60)
[2023-03-08] MEDS: Enoxaparin 80 MG/0.8 ML SYR SUBCUT SCH ×2 (08:29→21:14)
[2023-03-08] MEDS: Polyethylene Glycol 3350 17 GM PACKET PO PRN (21:23)
[2023-03-09] MEDS: Enoxaparin 80 MG/0.8 ML SYR SUBCUT SCH ×2 (09:52→21:24)
[2023-03-10] MEDS: Enoxaparin 80 MG/0.8 ML SYR SUBCUT SCH ×2 (07:37→16:20)
[2023-03-10 17:17] VITALS: BP 101/59
== END 2023-03-10 17:40 | disposition home or self-care (01) | DRG 47 ==
LOC: ED 15:10 → EDHOLD 15:10 → MEDTELE 21:57 → SUATTDRO 03-06 13:30 → MEDTELE 03-07 21:42
PROVIDERS: ADMIT Student in an Organized Health Care Education/Training Program; ATTEND Internal Medicine